=== PATIENT | male | born 1985 | race Caucasian/White ===

== ENCOUNTER 2024-03-03 08:07 | Outpatient (OUT) | payer OTHER, SELFPAY ==
--- NOTE | 2024-03-03 08:10 | MR_ITS ---
[place] [id number] Patient Name: CATHRYN BRANDON MRN: [id number] date: 1985 Sex: M Assigned Patient Location: MRI Current Patient Location: MRI Accession/Order Number: [id number] Exam Date: 03/03/2024 08:15 Report Date: 03/03/2024 12:50 At the request of: BABITA URBINA Procedure: MR head/brain wo/w con EXAM: MR head/brain wo/w con CLINICAL INDICATION: Loss Of Consciousness COMPARISON: None TECHNIQUE/PROTOCOL: Standard pre and postcontrast protocol brain MRI performed (Sagittal T1 with axial T1, T2, GRE, FLAIR, and diffusion-weighted imaging). FINDINGS: No restricted diffusion, extra-axial fluid collection, hydrocephalus, midline shift, or other mass effect. Intracranial flow voids are maintained. Multiple scattered small hyperintense T2/FLAIR periventricular and subcortical foci are nonspecific. Normal marrow signal. No soft tissue abnormalities. Mild scattered paranasal sinus mucosal thickening. Trace left mastoid effusion. MR/MR head/brain wo/w con IMPRESSION: 1. No acute intracranial process or abnormal enhancement. 2. Multiple scattered small hyperintense T2/FLAIR periventricular and subcortical foci are nonspecific. This could reflect chronic microvascular angiopathic changes, sequela of migraine headaches, or a demyelinating process. Electronically authenticated by: KATE HENDERSON Date: 03/03/2024 12:50
--- NOTE | 2024-03-03 09:45 | PC.NURSE ---
0850 Called to MRI for pt vomiting after given IV dotarem. Pt is standing and can answer all questions appropriately. Skin pink warm and dry. Pt had dry heaves in the MRI after IV administration. Pt taken to holding area ambulatory. BP 145/97 P 72 and regular, Resp 18, 96% pulse ox on RA. Pt denies SOB or any dyspnea, denies itchy feeling. No hives noted to back or axilla areas bilaterally. Pt states that he has had MRI contrast previously and he vomited after that was given also. 0905 Pt states that he is feeling fine and is ready to continue with the remainder of the scan. 0920 Pt tolerated remainder of scan well and denies any c/o problems . Encouraged pt to possibly try antiemetic prior to next IV administration of Dotarem.
== END 2024-03-03 08:08 | disposition home or self-care (01) ==
LOC: MRI 08:07
PROVIDERS: PCP Internal Medicine; Visit Provider Psychiatry & Neurology Neurology
DX: R40.20 Unspecified coma (principal); N52.9 Male erectile dysfunction, unspecified
CPT/HCPCS: 70553; A9575

== ENCOUNTER 2024-03-03 09:23 | Outpatient (OUT) | payer OTHER, SELFPAY | END 2024-03-03 09:24 | disposition home or self-care (01) | LOC: LAB 09:25 | PROVIDERS: PCP Internal Medicine; Visit Provider Nurse Practitioner Family | DX: N52.9 Male erectile dysfunction, unspecified (principal) | CPT/HCPCS: 36415; 84402; 84403 ==

== ENCOUNTER 2024-11-28 08:32 | Outpatient (OUT) | payer OTHER, SELFPAY ==
--- OUTSIDE RECORDS SUMMARY | 2024-11-28 04:27 | XMS_ITS | Continuity of Care Document ---
Author Organization [facility] Address [address] [place] [address] Phone Care Team Providers Care Head Rigger Name Role Phone Medina Correia APRN Primary Care Provider Ashley Rascon MD Attending Provider [phone] Medina Correia APRN Attending Provider Care Teams Patient Care Team Team Status: Active Member Role/Relationship Status Dates Medina Correia APRN BALE COVERER-C Primary Care Provider Active Visit Care Team Team Status: Inactive Member Role/Relationship Status Dates Medina Correia APRN BALE COVERER-C Primary Care Provider Active Start: October 122024 End: October 12, 2024Shanna Dorsey ProviderActiveStart: October 12, 2024 End: October 12, 2024 Patient Care Team Team Status: Inactive Member Role/Relationship Status Dates Medina Correia APRN BALE COVERER-C Primary Care Provider Active Start: November End: November 28, 2024Medina Correia APRN BALE COVERER-CAttending ProviderActive Start: November 28, 2024 End: November 28, 2024 Chief Complaint and Reason for Visit Chief Complaint Admit Date 3 month f/u October 12, 2024 8:31am Biometric Screening November 28, 2024 7 :54am Reason for Visit Admit Date Patent foramen ovale October 12, 2024 8:31am Syncope October 12, 2024 8:31am Vasovagal syncope October 12, 2024 8:31am Screening for deficiency anemia November 28, 2024 7:54am Screening for lipid disorders November 282024 7:54am Screening for metabolic disorder November 28, 2024 7:54am Screening for prostate cancer November 282024 7:54am Wellness examination November 28, 2024 7:54am Allergies, Adverse Reactions, Alerts Allergen Type Severity Reaction Last Updated Verified Status Gadolinium-Containing Contrast Medi Allergy Mild Vomiting November 28 7:47am Yes Active Iodinated Contrast Media Allergy Mild Vomiting November 28 7:47am Yes Active Social History Smoking Status Status Start Date End Date Date of Observa tion Ex-smoker (finding) July 31, 2024 10:57am Observation Status Observation Response Date of Response Legal Sex Male (finding) Sex Assigned At [facility] 1985 Family History Relationship Condition Age at Onset Recorded Date/T oliver mother Heart disease Unknown Myocardial infarctionUnknownfatherHeart diseaseUnknownMyocardial infarction UnknownHistory of percutaneous transluminal coronary angioplastyUnknownpaternal grandfatherMyocardial infarctionUnknownmaternal grandfatherMalignant neoplasm Unknown Problems Active Problems Problem Diagnosis/Recorded Date Onset Date Stat us Screening for prostate cancer November 28, 2024 8:15a m Unknown Active Screening for deficiency anemia November 28, 2024 8:1 4am Unknown Active Vasovagal syncope June 06, 2024 1:07pm Unknown Active Wellness examination November 28, 2024 8:14am Unknown Active Screening for metabolic disorder November 28, 2024 8: 14am Unknown Active Screening for lipid disorders November 28, 2024 8:14a m Unknown Active Syncope March 01, 2024 11:26am Unknown A ctive Patent foramen ovale March 01, 2024 11:08am Unknow n Active Inactive/Resolved Problems Problem Diagnosis/Recorded Date Onset Date Stat us Erectile dysfunction March 01, 2024 11:30am Unknow n Resolved Medications Medication Status Dose Units Route Directions Qty Days Refills S tart Date Stop Date End Date Reason(s) Instructions Adherence Sildenafil (Viagra) 50 mg tablet Discontinued 50 MG PO Daily as needed for sexual activity 10 0January 2024 1:00amJuly 2024 2:17pmErectile dysfunction Male erectile dysfunction, unspecifiedadminister 30 minutes to 4 hours before activityMetoprolol Succinate (Toprol Xl) 25 mg tablet extended release 24 hr Jyrgxisdoezu89XOFOJyhgx710Wdve 2024 12:00amOctober 2024 8:06am Sildenafil (Viagra) 50 mg clsudwHunnbj53RAMZXytce as needed for sexual activity 155July 2024 2:16pmErectile dysfunction Male erectile dysfunction, unspecifiedadminister 30 minutes to 4 hours before activityComplies with drug therapyMetoprolol Succinate (Toprol Xl) 25 mg tablet extended release 24 izUcyqqu07VQPFOhvsl079Yhbdcac 2024 8:06amComplies with drug therapyAspirin 81 mg tablet,wiaupwqvVaaqpnuzzogz46NMMJEcsisHsqstjh 2024 1:00amSeptember 2024 8:36am Vital Signs Vital Reading Result Reference Range Collection Date/Time Height 69 [in_i] October 12, 2024 8:25mmUelcah511.86 kgSeptember 2024 8:40amHeart Rate79 /dhk24-759Rawmlswel 4th, 2025 8:40amRespiratory rate18 /djp13-08Ifmsfbwdu 4th, 2025 8:40amOxygen saturation by Pulse dgvbeiff14 %95-100Sept2024 8:40amBP Ecbtqnbb529 mm[Hg]100-140September 2024 8:40amBP Aovvwamzi33 mm[Hg]60-100Sept2024 8:40amBMI (Body Mass Index)35.4 kg/v8Nxjmdtkvx2024 8:58fkBbwipp74 [in_i]November 28, 2024 7:44luPshksd023.95 kgOctober 2024 7:55amBody Jypaqmeajun52.9 [degF]97.6-99.0Octuofl [facility] 2024 7:55am Heart Rate74 /ijf79-115Iqlqhel 2024 7:55amOxygen saturation by Pulse taetzvue19 %95-100October 2024 7:55amBP Bpqyayxs691 mm[Hg]100-140October 2024 7:55amBP Xdflejlzd12 mm[Hg]60-100October 2024 7:55amBMI (Body Mass Index)35.1 kg/t3Yvyuffn 2024 7:55am Advance Directives Advance Directive Response Recorded Date/ Time Advance Directives No February 25, 2024 12:06pm Insurance Providers Guarantor Huber Vega Address [address] [place] [address]Gsfhlpw Info.Home Phone: Coverage Status Update:2024 Payer Group Member ID Coverage Type Subscriber Relationship to Subscriber Effective Date Expiration Date [facility] [id number] Encounters Encounter Location(s) Arrival/Admit Date Discharge/Departure Date Discharge/Departure Disposition Provider(s) Departed Physician/ Provider Office Visit -[facility] October 12, 2024 8:31am October 12, 2024 9:23am Discharged to home care or self care (routine discharge) Ashley Rascon MD Departed Physician/ Provider Office Visit -[facility] November 28, 2024 7:54am November 28, 2024 8:26am Discharged to home care or self care (routine discharge) Medina Correia APRN CNP Recent Diagnosis Onset Date Admit Date Patent foramen ovale Unknown October 122024 8:31am Syncope Unknown October 12, 8:31am Vasovagal syncope Unknown October 12, 2024 8:31am Screening for deficiency anemia Unknown November 28, 2024 7:54am Screening for lipid disorders Unknown Oc 2024 7:54am Screening for metabolic disorder Unknown November 28, 2024 7:54am Screening for prostate cancer Unknown Oc 2024 7:54am Wellness examination Unknown November 7:54am Assessments Diagnosis Onset Date Resolution Status Admit Date Patent foramen ovale acuteSept2024 8:31amSyncopeacuteSept2024 8:31amVasovagal syncopeacuteSept2024 8:31amScreening for deficiency anemiaacute November 28, 2024 7:54amScreening for lipid disordersacuteOct2024 7:54amScreening for metabolic disorderacuteNovember 28, 2024 7:54amScreening for prostate canceracuteNovember 28, 2024 7:54amWellness examinationacute November 28, 2024 7:54am Plan of Treatment Author Alaina Santiago [facility] CenterAuthoredSept2024 9:05amAssessment: #Vasovagal syncope #PFO with Qp/Qs ratio of 0.8:1 on cardiac MRI #Palpitations #Obesity BMI 35 Cardiac work up September 2022: Normal coronary calcium score. ECHO with EF of 60- 65%; Cardiac MRI with normal RV and LV function. No delayed LGE. PFO noted with a Qp/Qs ratio of 0.8:1. 30 day event monitor negative for arrhythmias Reviewed ECHO from [facility] 10/02/2022: LVEF 62% with normal LV size, thickness and wall motion. Enlarged RV with normal RV function. L to R shunt likely a small PFO Plan: - Tilt table testing was normal. 14 day Zio monitor showed no significant arrhythmias but had a very brief episode of nonsustained VT that was symptomatic. - Palpitations: continue Toprol 25 mg daily. - Discussed increased hydration, liberal salt intake and compression stockings if needed for vasovagal symptoms. - Continue ASA 81mg daily given hx of PFO - Follow up in 6 months, sooner if needed. Future Tests Future scheduled test information is unavailable Pending Tests Test Name Ordered Date Scheduled Date Comprehensive Metabolic Panel November 28, 2024 8:13am Future Visits Future appointment information is unavailable Future Procedures Procedure Name Ordered Date Scheduled Date Complete Blood Count Auto Diff November 28 8:13am Lipid PanelOct2024 8:13amPSA Screen (Yearly Only)November 28, 2024 8:13am Future Medications Future medication information is unavailable Patient Instructions Patient instructions are unavailable
--- OUTSIDE RECORDS SUMMARY | 2024-11-28 08:38 | XMS_ITS | Clinical Summary ---
Author Organization [facility] Address [address] [place] [address] Phone Care Team Providers Care Edge Cutting Machine Operator Name Role Phone Generic Provider, No Assigned Pcp MD Primary Car e Provider Unavailable Allergies No known active allergies Medications MedicationSigDispense QuantityRefillsLast FilledStart DateEnd DateStatus omeprazole (PriLOSEC) [address] capsule Take 1 capsule (20 mg) by mouth once daily.Active Active Problems ProblemNoted DateDiagnosed TmstYfmekow84/04/2024Seizure-like ayjnsvkc54/04/2024 Syncope and qqouvsyz05/04/2024 Social History Tobacco UseTypesPacks/DayYears UsedDateSmoking Tobacco: NeverSmokeless Tobacco: Never Tobacco Cessation:Counseling Given: Not Answered Sex and Gender InformationValueDate RecordedSex Assigned at BirthNot on file Legal ZrjBwei47/04/2024 10:07 AM ESTGender IdentityNot on fileSexual Orientation Not on file Last Filed Vital Signs Vital SignReadingTime TakenCommentsBlood Izciahrm684/6712/13/2023 2:00 PM EST Fwnfo905812/13/2023 2:00 PM SJYSzwqkqmsryb19.8 ??C (98.2 ??F)12/13/2023 10:24 AM ESTRespiratory Ecgz340302/11/2023 2:00 PM ESTOxygen Sdozwkmule48%12/13/2023 2:00 PM ESTInhaled Oxygen Concentration--Lfcxmg844 kg (240 lb)12/13/2023 10:24 AM EST Nejjqe035.3 cm (5' 9 )12/13/2023 10:24 AM ESTBody Mass Index35.44102/11/2023 10:24 AM EST Plan of Treatment Health MaintenanceDue DateLast DoneCommentsHIV Bukhztxmz36/05/1984Lipid Panel 1985MMR Vaccines (1 of 1 - Standard series)12/13/1984Hepatitis C Screening 12/13/2001Hepatitis A Vaccines (1 of 2 - Risk 2-dose series)12/13/2002Hepatitis B Vaccines (1 of 3 - 19+ 3-dose series)12/13/2002DTaP/Tdap/Td Vaccines (1 - Tdap)12/13/2005HPV Vaccines (1 - 3-dose standard series)12/13/2010Yearly Adult Pvsnlihs19///07/2022Influenza Vaccine (#1)2024OVID-19 Vaccine ( - season)2024Zoster Vaccines (1 of 2)12/13/2033HIB VaccinesAged OutNo longer eligible based on patient's age to complete this topicIPV Vaccines Aged OutNo longer eligible based on patient's age to complete this topic Meningococcal VaccineAged OutNo longer eligible based on patient's age to complete this topicPneumococcal Vaccine: Pediatrics and At-Risk Adult Patients Aged OutNo longer eligible based on patient's age to complete this topic Rotavirus VaccinesAged OutNo longer eligible based on patient's age to complete this topic Insurance * Guarantor: Chanda Vega TypeRelation to PatientDate of BirthPhone Billing AddressPersonal/LoagrxIbve81/05/1986 [address] [place] [address] [place] [id number] Care Teams Team MemberRelationshipSpecialtyStart DateEnd Date Generic Provider, No Assigned Pcp, [place] [address] PCP - GeneralGeneral Frjqokwx62/4/24
--- OUTSIDE RECORDS SUMMARY | 2024-11-28 08:38 | XMS_ITS | Clinical Summary ---
Author Organization [facility] Address Count includes the [facility] [place] [address] Care Team Providers Care Procedures Tech Name Role Phone Unavailable Primary Care Provider Unavailabl e Allergies No known active allergies Medications MedicationSigDispense QuantityRefillsLast FilledStart DateEnd DateStatus omeprazole (PRILOSEC) 20 MG capsule Take 1 (one) capsule (20 mg total) by mouth daily .Active Active Problems ProblemNoted DateDiagnosed GdagUucoaxc01/12/2024 Family History Medical HistoryRelationCommentsHeart diseaseFatherHyperlipidemiaFatherCancer Maternal GrandfatherHeart diseaseMotherCancerPaternal GrandfatherHeart disease Paternal GrandfatherDiabetesPaternal GrandmotherHeart diseasePaternal GrandmotherRelationStatusCommentsFatherMaternal GrandfatherMotherDeceased Paternal GrandfatherPaternal Grandmother Social History Tobacco UseTypesPacks/DayYears UsedDateSmoking Tobacco: FormerCigarettes0.521 01/11/2002 - 01/11/2023Smokeless Tobacco: Former Tobacco Cessation:Counseling Given: Not Answered Comments:Vaped for 5 years Alcohol UseStandard Drinks/WeekCommentsNever0 (1 standard drink = 0.6 oz pure alcohol)Overall Financial Resource Strain (CARDIA)AnswerDate RecordedHow hard is it for you to pay for the very basics like food, housing, medical care, and heating?Somewhat hard05/14/2022HQ-2AnswerDate RecordedPHQ-2 Total Score0 05/14/2022Hunger Vital SignAnswerDate RecordedWithin the past 12 months, you worried that your food would run out before you got the money to buymore.Never true05/14/2022Within the past 12 months, the food you bought just didn't last and you didn't have money to get more.Sometimes true05/14/2022RAPARE - TransportationAnswerDate RecordedIn the past 12 months, has lack of transportation kept you from medical appointments or from getting medications?No 05/14/2022In the past 12 months, has lack of transportation kept you from meetings, work, or from getting things needed for daily living?No05/14/2022Sex and Gender InformationValueDate RecordedSex Assigned at BirthNot on fileLegal OgaRnrt9205/11/2022 9:53 AM EDTGender SyspclpqGfpb29/11/2023 7:03 AM EDTSexual CdutasogiltWaxercnm82/11/2023 7:03 AM EDT Last Filed Vital Signs Vital SignReadingTime TakenCommentsBlood Tqzxgfvm763/8103/29/2023 8:39 AM EST Tiiqo754703/29/2023 8:39 AM PWSCqbzkxphjps85.7 ??C (98 ??F)05/14/2022 11:34 AM EDT Respiratory Htij045205/14/2022 12:30 PM EDTOxygen Thbdpzsotd68%03/29/2023 8:39 AM ESTInhaled Oxygen Concentration--Xezuna741.3 kg (241 lb)03/29/2023 8:39 AM EST Ocbxss597.3 cm (5' 9 )03/29/2023 8:39 AM ESTBody Mass Index35.59003/29/2023 8:39 AM EST Plan of Treatment Health MaintenanceDue DateLast DoneCommentsMMR Vaccines (1 of 1 - Standard series)12/13/1984Varicella Vaccines (1 of 2 - 13+ 2-dose series)12/13/1996HIV Skrfmaztc40/05/1999Hepatitis C Zvbqasynd32/05/2002Hepatitis B Vaccines (1 of 3 - 19+ 3-dose series)12/13/2002Tetanus/Diphtheria/Pertussis (1 - Tdap)12/13/2002HPV Vaccines (1 - 3-dose SCDM series)12/13/2010Depression Screening/Follow-Up (PHQ-2/9)Wellness Visit404/07/2022, 05/14/2022, 05/14/2022OVID-19 Vaccine (1 - 2023- season)2024Influenza Vaccine (#1) 2024Zoster Vaccines (1 of 2)4RSV Vaccines (1 - 1-dose 75+ series) 12/13/2058HIB VaccinesAged OutNo longer eligible based on patient's age to complete this topicHepatitis A VaccinesAged OutNo longer eligible based on patient's age to complete this topicIPV VaccinesAged OutNo longer eligible based on patient's age to complete this topicMeningococcal ACWY VaccineAged OutNo longer eligible based on patient's age to complete this topicMeningococcal B VaccineAged OutNo longer eligible based on patient's age to complete this topic Pneumococcal VaccineAged OutNo longer eligible based on patient's age to complete this topicRotavirus VaccinesAged OutNo longer eligible based on patient's age to complete this topic Insurance * Guarantor: Chanda Vega TypeRelation to PatientDate of BirthPhone Billing AddressPersonal/PzqplfIwds16/05/1986 [id number] (Home) [address] [place] [address]
--- OUTSIDE RECORDS SUMMARY | 2024-11-28 08:38 | XMS_ITS | Clinical Summary ---
Author Organization [facility] Address [address] [place] [address] Care Team Providers Care Welder Tack Name Role Phone Mamadou Capone DO Unavailable [phone] Chetna Nicolas NP Unavailable Unavailable Allergies Active AllergyReactionsCriticalityNoted DateCommentsIodinated Contrast MediaGI xtpwbxivwxa76/05/2025 Medications MedicationSigDispense QuantityRefillsLast FilledStart DateEnd DateStatus aspirin 81 MG EC tablet Indications:Loss of consciousness (HCC)Take 81 mg by mouth DailyActive Family History Medical HistoryRelationNameCommentsMigrainesBrotherHeart attackFatherHeart attackMotherMigrainesMotherepilepsyMother's BrotherRelationNameStatusComments BrotherFatherMotherMother's Brother Social History Tobacco UseTypesPacks/DayYears UsedDateSmoking Tobacco: FormerCigarettes Smokeless Tobacco: NeverAlcohol UseStandard Drinks/WeekCommentsNot Currently0 (1 standard drink = 0.6 oz pure alcohol)Drinks sociallySex and Gender Information ValueDate RecordedSex Assigned at BirthNot on fileLegal PshZjmm92/14/2024 9:22 AM ESTGender IdentityNot on fileSexual OrientationNot on file Last Filed Vital Signs Vital SignReadingTime TakenCommentsBlood Troeqjya753/8803/15/2024 8:38 AM EST Cwyhr980403/15/2024 8:38 AM ESTTemperature--Respiratory Rate--Oxygen Zmkrkpgphs92% 03/15/2024 8:38 AM ESTInhaled Oxygen Concentration--Aewdre609 kg (244 lb) 03/15/2024 8:38 AM ESTHeight--Body Mass Index-- Plan of Treatment [place] [address] Care Teams Team MemberRelationshipSpecialtyStart DateEnd Mamadou Capone DO [address] [place] [id number] Referring PhysicianNeurology1/09/01 Chetna Nicolas NP [address] [place] [id number] Nurse PractitionerNeurology1
--- OUTSIDE RECORDS SUMMARY | 2024-11-28 08:40 | XMS_ITS | CCD ---
Author Organization [facility] Care Team Providers Care Transportation Technician Name Role Phone Es Eleazar MOLINA Primary Care Provider [phone] LOU PALMER Attending Unavailabl e ESELEAZAR Plascencia Primary Care Unavailable ESELEAZAR Plascencia Primary Care Unavailable COLBY DEL ROSARIONLORENZO MShanika Referring Unavailable AMBROSE DEL ROSARIO Attending Unavailable ELEAZAR BURTON Primary Care Unavailable AMBROSE DEL ROSARIO MShanika Referring Unavailable AMBROSE DEL ROSARIO MShanika Attending Unavailable AMBROSE DEL ROSARIO Attending Unavailable ESELEAZARA Primary Care Unavailable RONNIE VIRENLORENZO MShanika Referring Unavailable Es Eleazar MOLINA Primary Care Provider ES, ELEAZAR CHAMPION Primary Care Unavailable DEYA NEGRETE Attending Unavailable ESELEAZAR Admitting Unavailable ESELEAZAR Primary Care Unavailable ESELEAZAR Referring Unavailable DEL ROSARIO, VIRENKMERVIN MShanika Attending Unavailable ESELEAZAR Plascencia Primary Care Unavailable ELEAZAR BURTON Attending Unavailable Generic Provider MD, No Assigned Pcp Primary Car e Provider Unavailable GENERIC PROVIDER, NO ASSIGNED PCP Primary Care Unavailable JENNIFER MACHUCA Attending Unava ilable Unavailable Primary Care Provider UnavailBabita Metcalf DO Unavailable Chetna Adamson NP Unavailable CHETNA ADAMSON Attending Unavailable BABITA CAPONE Attending Unavailable BAIBTA CAPONE Referring Unavailable Medina Correia APRN Primary Care Provider Ashley Rascon MD Attending Provider [phone] Ashley Rascon Attending Unavailable Medina Correia Primary Care Unavailable Ashley Rascon Admitting Unavailable Ashley Rascon Attending Unavailable Medina Correia Primary Care Unavailable Ashley Rascon Admitting Unavailable Medina Correia APRN Primary Care Provider Ashley Rascon MD Attending Provider [phone] Medina oCrreia APRN Primary Care Provider Ashley Rascon MD Attending Provider Medina Correia APRN Attending Provider [phone] Allergies Allergy ClassificationReported Allergen(s)Allergy TypeDate of OnsetReaction(s) Facility (7 sources)Iodinated Contrast MediaPropensity to adverse gzcbdejdd00-05-5424GX [facility] (6 sources)Gadolinium-Containing Contrast Medi; Translations: [Gadolinium- Containing Contrast Medi]Allergy to vfbuypzzv48-56[facility]17[facility] (1 source)Iodinated Contrast MediaDrug allergy (disorder)52-23-6945GwuttyzubHolzer [facility] System Rep[facility] Medications Current Medications MedicationDrug Class(es)DatesSig (Normalized)Sig (Original)24 hr metoprolol succinate 25 mg extended release oral tablet (3 sources)beta-Adrenergic BlockerStart: 07-11-2024 End: 34-69-3996ecen 1 tablet by mouth once dailyMetoprolol Succinate (Toprol Xl) 25 mg tablet extended release 24 hr Active 25 MG PO Daily 30 November 27, 2024 8:06am Complies with drug therapyomeprazole 20 mg delayed release oral capsule (6 sources)Proton Pump Inhibitortake 1 capsule by mouth once dailyomeprazole (PRILOSEC) 20 MG capsule Take 1 (one) capsule (20 mg total) by mouth daily . Activesildenafil 50 mg oral tablet (7 sources)Phosphodiesterase 5 InhibitorStart: 03-10-2024 End: 29-45-2124Jdoiyhfjfp (Viagra) 50 mg tablet Active 50 MG PO Daily as needed for sexual activity 15 August 21, 2024 2:16pm Erectile dysfunction Male erectile dysfunction, unspecified administer 30 minutes to 4hours before activity Complies with drug therapy Completed/Discontinued Medications MedicationDrug Class(es)DatesSig (Normalized)Sig (Original)aspirin 81 mg chewable tablet (15 sources)Platelet Aggregation Inhibitor, Nonsteroidal Anti-inflammatory Drug Start: 03-01-2024 End: 20-73-8926wpma 1 tablet by mouth once dailyAspirin 81 mg tablet,chewable Discontinued 81 MG PO Daily March 01, 2024 1:00am October 12, 2024 8:36am Start: 03-29-2023 End: 42-87-5549kwpv 1 tablet by mouth once dailyaspirin 81 MG EC tablet Take 1 (one) tablet (81 mg total) by mouth daily . 150 tablet 2 03/29/2023 03/28/2024 Activeiohexol (OMNIPaque) 350 mg iodine/mL solution 75 mL (1 source)Start: 12-13-2023 End: mL, intravenous, Once in imaging, Starting on Wed12/13/23 at 1212, For 1 wiyc9021 ml sodium chloride 9 mg/ml injection (1 source)Start: 12-13-2023 End: 09-81-4585274 mL, intravenous, at 500 mL/hr, Administer over 1 Hours, Once, On Wed12/13/23 at 1430, For 1 dose Problems Active Problems Problem ClassificationProblemDateDocumented DateEpisodic/ChronicCardiac and circulatory congenital anomalies (16 sources)Patent foramen ovale; Translations: [PFO (patent foramen ovale)] 04-68-4968ZymoaxoSjax; stupor; and brain damage (4 sources)Loss of consciousness; Translations: [Unspecified coma]02-15-2024 EpisodicDisorders of lipid metabolism (1 source)Hyperlipidemia; Translations: [Hyperlipidemia, unspecified]08-24-2022 ChronicEpilepsy; convulsions (7 sources)Neurological finding; Translations: [Unspecified convulsions]Onset: 865112-21-7054GwkzkywdTdynvkjzpeg deficiencies (3 sources)Vitamin D deficiency; Translations: [Vitamin D deficiency, unspecified]Onset: 506783-38-8730IgneotaUqxen male genital disorders (7 sources)Male erectile dysfunction, unspecified; Translations: [Erectile dysfunction]75-64-6262ZbhhgliOctsx screening for suspected conditions (not mental disorders or infectious disease) (8 sources)Patient encounter status; Translations: [Encounter for screening for malignant neoplasm of prostate]71-44-7301HqnpdxyuQgqsozof codes; unclassified (1 source)FH: premature coronary heart disease; Translations: [Family history of ischemic heart disease and other diseases of the circulatory system]08-24-2022 EpisodicSyncope (20 sources)Syncope; Translations: [Syncope and collapse]Onset: 08-24-2022 09-60-4700Ffevtywt Past or Other Problems Problem ClassificationProblemDateDocumented DateEpisodic/ChronicNonspecific chest pain (8 sources)Chest pain; Translations: [Chest pain, unspecified]Onset: 05-14-2022 04-52-8722DbfftpbrUlrvltit codes; unclassified (4 sources)Family history of ischemic heart disease and other diseases of the circulatory system; Translations: [Family history of ischemic heart disease and other diseases of the circulatory system]Onset: 14-67-8468Iplxqprf Results Test NameValueInterpretationReference RangeFacilityTilt table test reportOrdered By: Abdirahman Wilhelm on 37-23-4798Ujnv table [place] [address] Tilt Table Test Signed Patient: Cathryn Brandon MR#: [id number] : 1985 Date of Service:0 07/04/24 Age/Sex: 38 / M ADM Date: 5 Loc: Room: Type: [facility] Attending Dr: Ashley Rascon MD Copies to: MD Medina Shaikh APRN, PRECINCT CAPTAIN Ashley Rascon MD~ ORDERING PHYSICIAN: Dr. Rascon INDICATION FOR STUDY: Syncope PROCEDURE: Risks and benefits explained to the patient. Consent obtained. A bolus of IV fluid was given prior to testing. Orthostatic vitals were recorded. Following that, the patient was placed in a 70 degree head-up tilt position. Hemodynamics were monitored. Patient was also monitored for any postural tachycardia i.e. a symptomatic and sustained increase in upright heart rate by at least 30 beats/minute (40 beats/minute for patients under the age of 20 years) within 10 minutes of head-up tilt without orthostatic hypotension. After 25 minutes of thepassive phase, the table was brought back to a supineposition. We then proceeded to the active phase of the test in which Nitroglycerin was administeredsublingually to provoke a vasovagal response. The patient was again placed in the tilt position andmonitored for 20 minutes. The tilt table test was then terminated. Passive phase: The patient had no changes suggestive of orthostatic hypotension after tilt. No significant changes in blood pressure during the passive phase. There was no exaggerated heart rate response to suggest postural tachycardia. There was no loss of consciousness. Active phase: Normal physiologic response to Nitroglycerin was observed. There was no loss of consciousness. Please see Tilt Table Worksheet for timed logs, hemodynamic data, EKG, and nursing procedure notes. CONCLUSION: 1. Negative tilt table testing for vasovagal syncope. 2. Negative for orthostatic hypotension. 3. There was no exaggerated heart rate response to suggest postural tachycardia. Transcribed By: bonifacio 07/04/24 1525 Dictated By: Abdirahman Wilhelm MD 07/04/24 1525 Signed By: 07/04/24 1527 [facility] Work Phone: fpg ECG *CARDIOLOGY ONLY*on 22-86-8140VRI ECG *CARDIOLOGY ONLY*[place] [address] Electrocardiograph Report Signed Patient: Cathryn Brandon MR#: [id number] 5 : 1985 Acct:[id number] Age/Sex: 38 / M ADM Date: 06/06/24 Loc: [facility] Room: Type: [facility] Attending Dr: Ashley Rascon MD Ordering Provider: Ashley Rascon MD Date of Service: 06/06/24 ECG/FPG ECG *CARDIOLOGY ONLY*: R55 - Syncope and collapse Copies to: Test Reason : Blood Pressure : */* mmHG Vent. Rate : 55 BPM Atrial Rate : 55 BPM P-R Int : 180 ms QRS Dur : 88 ms QT Int : 418 ms P-R-T Axes : 18 61 18 degrees QTcB Int : 399 ms Sinus bradycardia Otherwise normal ECG Confirmed by Ashley Rascon ([id number]) on 06/06/2024 12:51:30 PM Referred By: Electronically Signed By: Ashley Rascon Transcribed By: MUS Signed By Ashley Rascon MD [address] [place] [address] Physician [facility] W Auto Differential panel (Bld)on 95-38-4875Rqfkxhuml (Bld) [#/Vol]0.08 10*3/[facility] Basophils/100 WBC (Bld)0.6 %0.0 - 2.0 %[facility] Eosinophils (Bld) [#/Vol]0.04 10*3/uLFirelands Regional Medical Center South Campus Eosinophils/100 WBC (Bld)0.3 %0.0 - 6.0 %[facility] Erythrocyte distribution width (RBC) [Ratio]12.1 %11.5 - 14.5 %[facility] CampusHematocrit (Bld) [Volume fraction]42.4 %41.0 - 52.0 % [facility] CampusHemoglobin (Bld) [Mass/Vol]14.1 g/dL13.5 - 17.5 g/dLUnKindred Hospital DaytonImmageorgetown behavioral hospital granulocytes (Bld) [#/Vol]0.04 10*3/[facility] CenterImellett memorial hospital granulocytes/100 WBC (Bld)0.3 % 0.0 - 0.9 %[facility] CampusComment on above:Immature Granulocyte Count (IG) includes promyelocytes, myelocytes and metamyelocytes but does not include bands. Percent differential counts (%) should be interpreted in the context of the absolute cell counts (cells/UL).Interpretation and review of laboratory resultsAbnormalUniKeenan Private HospitalLymphocytes (Bld) [#/Vol]1.75 10*3/uLFirelands Regional Medical Center South CampusLymphocytes/100 WBC (Bld) 14.1 %13.0 - 44.0 %[facility] HospitalH (RBC) [Entitic mass]30.7 pg26.0 - 34.0 pgUnLima City HospitalHC (RBC) [Mass/Vol]33.3 g/dL 32.0 - 36.0 g/dLGalion Community HospitalV (RBC) [Entitic vol]92 fL80 - 100 fLUniversRiley Hospital for ChildrenMonocytes (Bld) [#/Vol]0.63 10*3/uL [facility] CampusMonocytes/100 WBC (Bld)5.1 %2.0 - 10.0 % [facility] CampusNeutrophils (Bld) [#/Vol]9.9 10*3/uLHigh [facility] CampusComment on above:Percent differential counts (%) should be interpreted in the context of the absolute cell counts (cells/uL). Neutrophils/100 WBC (Bld)79.6 %40.0 - 80.0 %[facility] Nucleated RBC/100 WBC (Bld) [Ratio]0 %[facility] CampusPlatelets (Bld) [#/Vol]299 10*3/[facility] CenterRB (Bld) [#/Vol]4.6 10*6/[facility] CenterWBC (Bld) [#/Vol]12.4 10*3/uLGreen Cross HospitalUnKindred Hospital DaytonBasophils (Bld) [#/Vol]0.08 x10*3/uLNormal0.00-0.10[facility] CampusComment on above:Performed By: #### 56319-1 #### LAVONNE Padilla ([id number]) [facility] ([facility]) [address] [facility], [place] [address]Ozfailchf/100 WBC (Bld)0.6 %Normal0.0-2.0UnUniversity Hospitals Health SystemComment on above:Performed By: #### 51381-5 #### LAVONNE Padilla ([id number]) [facility] ([facility]) [address] [facility], [place] [address]Jfmmkcjbqxd (Bld) [#/Vol]0.04 x10*3/uLNormal0.00-0.70[facility] CampusComment on above:Performed By: #### 37141-6 #### LAVONNE Padilla ([id number]) [facility] ([facility]) [address] [place] [address]Zrfxgccuxae/100 WBC (Bld)0.3 %Normal0.0-6.0UnUniversity Hospitals Health SystemComment on above:Performed By: #### 47726-5 #### LAVONNE Padilla ([id number]) [facility] ([facility]) [address] [place] [address]Mgrbdygezpf distribution width (RBC) [Ratio]12.1 %Normal 11.5-14.5UnUniversity Hospitals Health SystemComment on above:Performed By: #### 22477-3 #### LAVONNE Padilla ([id number]) [facility] ([facility]) [address] [place] [address]Onjcoxkzcn (Bld) [Volume fraction]42.4 %Qtotav36.0-52.0 [facility] CampusComment on above:Performed By: #### 33722-9 #### LAVONNE Padilla ([id number]) [facility] ([facility]) [address] [place] [address]Dayvrsounx (Bld) [Mass/Vol]14.1 g/dRMstkzn77.5-17.5UnUniversity Hospitals Health SystemComment on above:Performed By: #### 16147-6 #### LAVONNE Padilla ([id number]) [facility] ([facility]) [address] [place] [address]Vsvwtuiy granulocytes (Bld) [#/Vol]0.04 x10*3/uLNormal0.00-0.70 [facility] CampusComment on above:Performed By: #### 66796-5 #### LAVONNE Padilla ([id number]) [facility] ([facility]) [address] [place] [place] [address]Ticyonzq granulocytes/100 WBC (Bld)0.3 %Normal0.0-0.9UnUniversity Hospitals Health SystemComment on above:Result Comment: Immature Granulocyte Count (IG) includes promyelocytes, myelocytes and metamyelocytes but does not include bands. Percent differential counts (%) should be interpreted in the context of the absolute cell counts (cells/UL).Performed By: #### 25786-1 #### LAVONNE Padilla ([id number]) [facility] ([facility]) [address] [place], [place] [address]Pmxqcckqvfa (Bld) [#/Vol]1.75 x10*3/uLNormal1.20-4.80[facility] CampusComment on above:Performed By: #### 50913-8 #### LAVONNE Padilla ([id number]) [facility] ([facility]) [address] [place], [place] [address]Clmafdhylib/100 WBC (Bld)14.1 %Fxdjvm59.0-44.0UnUniversity Hospitals Health SystemComment on above:Performed By: #### 78804-1 #### LAVONNE Padilla ([id number]) [facility] ([facility]) [address] [place], [place] [address]KNA (RBC) [Entitic mass]30.7 cfNrnofx49.0-34.0UnUniversity Hospitals Health SystemComment on above:Performed By: #### 22030-4 #### LAVONNE Padilla ([id number]) [facility] ([facility]) [address] [place], [place] [address]SKXR (RBC) [Mass/Vol]33.3 g/rXJplkgr20.0-36.0[facility] CampusComment on above:Performed By: #### 10863-9 #### LAVONNE Padilla ([id number]) [facility] ([facility]) [address] [place], [place] [address]BXW (RBC) [Entitic vol]92 fMIuiuwh21-761RtskiywrriUniversity Hospitals Health SystemComment on above:Performed By: #### 12097-7 #### LAVONNE Padilla ([id number]) [facility] ([facility]) [address] [place], [place] [address]Bvmvluhll (Bld) [#/Vol]0.63 x10*3/uLNormal0.10-1.00UnUniversity Hospitals Health SystemComment on above:Performed By: #### 88467-8 #### LAVONNE Padilla ([id number]) [facility] ([facility]) [address] [place] [address]Oebghmhxu/100 WBC (Bld)5.1 %Normal2.0-10.0[facility] CampusComment on above:Performed By: #### 13786-5 #### LAVONNE Padilla ([id number]) [facility] ([facility]) [address] [facility] [place], [place] [address]Hbimlwuwjqg (Bld) [#/Vol]9.90 x10*3/uLHigh1.20-7.70UnUniversity Hospitals Health SystemComment on above:Result Comment: Percent differential counts (%) should be interpreted in the context of the absolute cell counts (cells/uL).Performed By: #### 77202-0 #### LAVONNE Padilla ([id number]) [facility] ([facility]) [address] [place], [place] [address]Hhhtgdrhrfv/100 WBC (Bld)79.6 %Hotype82.0-80.0[facility] CampusComment on above:Performed By: #### 82135-0 #### LAVONNE Padilla ([id number]) [facility] ([facility]) [address] [place], [place] [address]Crwjhlzba RBC/100 WBC (Bld) [Ratio]0.0 /100 WBCsNormal0.0-0.0 [facility] CampusComment on above:Performed By: #### 02011-8 #### LAVONNE Padilla ([id number]) [facility] ([facility]) [address] [place], [place] [address]Nsqiyjrqi (Bld) [#/Vol]299 x10*3/aAKtsmxk003-691WzmliitgcnUniversity Hospitals Health SystemComment on above:Performed By: #### 25088-4 #### LAVONNE Padilla ([id number]) [facility] ([facility]) [address] [place], [place] [address]GSB (Bld) [#/Vol]4.60 x10*6/uLNormal4.50-5.90Tr[facility] CampusComment on above:Performed By: #### 03432-0 #### LAVONNE Padilla ([id number]) [facility] ([facility]) [address] [place], [place] [address]MRT (Bld) [#/Vol]12.4 x10*3/uLHigh4.4-11.3Tr[facility] West CampusComment on above:Performed By: #### 09607-8 #### LAVONNE Padilla ([id number]) [facility] ([facility]) [address] [place], [place] [address]MH ABDOMEN PELVIS W IV CONTRASTon 31-21-1876XU ABDOMEN PELVIS W IV CONTRASTSTUDY: CT Angiogram of the Chest, CT Abdomen and Pelvis with IV Contrast; 12/13/2023 12:23 PM INDICATION: Abdominal cramping and syncope. COMPARISON: XR chest 12/13/2023. ACCESSION NUMBER(S): [id number], [id number] ORDERING CLINICIAN: MEDINA MURO TECHNIQUE: CTA of the chest was performed following rapid injection of intravenous contrast. Images are reviewed and processed at a workstation according to the CT angiogram protocol with 3-D and/or MIP post processing imaging generated. CT of the abdomen and pelvis was performed with intravenous contrast. Omnipaque 350--75 mL was administered intravenously; positive oral contrast was given. Automated mA/kV exposure control was utilized and patient examination was performed in strict accordance with principles of ALARA. FINDINGS: Bolus technique for CTA of the chest is poor. Assessment for pulmonary embolus cannot be achieved. No acute opacities or effusions are visualized. There is no evidence of a pneumothorax. No filling defects are seen within the trachea or mainstem bronchi. No enlarged lymph nodes are seen within the mediastinal or hilar regions. Coronary artery calcifications are not visualized. There is no evidence of aneurysmal dilatation of the ascending aorta, aortic arch, or descending thoracic aorta. No compression deformities are visualized within the thoracic spine. There is fatty infiltration of the liver. The portal and hepatic veins are patent. There is no intrahepatic ductal dilatation. The gallbladder is mildly distended. No acute findings are seen within the spleen. No inflammatory changes are seen surrounding the pancreas. No adrenal nodule is noted. There are small bilateral renal cysts. There is no evidence of hydronephrosis. No dilated loops of small bowel or colon are visualized. There are diverticula seen throughout the colon. There is no evidence of diverticulitis. The appendix is normal in appearance. No enlarged lymph nodes are seen within the pelvic sidewalls, iliac chains, or retroperitoneum. There is no evidence of aneurysmal dilatation of the abdominal aorta. No prominent edema is seen within the psoas musculature. No compression deformities are visualized within the lumbar spine. IMPRESSION: CHEST: 1. Unable to assess for a pulmonary embolus due to poor bolus technique. ABDOMEN/PELVIS: 1. No evidence for a bowel obstruction. 2. Colonic diverticulosis, with no evidence of diverticulitis. 3. Fatty infiltration of the liver. 4. Bilateral renal cysts. Signed by Jay Del Rosario MDRegional Medical CenterCT ANGIO CHEST FOR PULMONARY EMBOLISMon [id number] ANGIO CHEST FOR PULMONARY EMBOLISMSTUDY: CT Angiogram of the Chest, CT Abdomen and Pelvis with IV Contrast; 12/13/2023 12:23 PM INDICATION: Abdominal cramping and syncope. COMPARISON: XR chest 12/13/2023. ACCESSION NUMBER(S): [id number], [id number] ORDERING CLINICIAN: MEDINA MURO TECHNIQUE: CTA of the chest was performed following rapid injection of intravenous contrast. Images are reviewed and processed at a workstation according to the CT angiogram protocol with 3-D and/or MIP post processing imaging generated. CT of the abdomen and pelvis was performed with intravenous contrast. Omnipaque 350--75 mL was administered intravenously; positive oral contrast was given. Automated mA/kV exposure control was utilized and patient examination was performed in strict accordance with principles of ALARA. FINDINGS: Bolus technique for CTA of the chest is poor. Assessment for pulmonary embolus cannot be achieved. No acute opacities or effusions are visualized. There is no evidence of a pneumothorax. No filling defects are seen within the trachea or mainstem bronchi. No enlarged lymph nodes are seen within the mediastinal or hilar regions. Coronary artery calcifications are not visualized. There is no evidence of aneurysmal dilatation of the ascending aorta, aortic arch, or descending thoracic aorta. No compression deformities are visualized within the thoracic spine. There is fatty infiltration of the liver. The portal and hepatic veins are patent. There is no intrahepatic ductal dilatation. The gallbladder is mildly distended. No acute findings are seen within the spleen. No inflammatory changes are seen surrounding the pancreas. No adrenal nodule is noted. There are small bilateral renal cysts. There is no evidence of hydronephrosis. No dilated loops of small bowel or colon are visualized. There are diverticula seen throughout the colon. There is no evidence of diverticulitis. The appendix is normal in appearance. No enlarged lymph nodes are seen within the pelvic sidewalls, iliac chains, or retroperitoneum. There is no evidence of aneurysmal dilatation of the abdominal aorta. No prominent edema is seen within the psoas musculature. No compression deformities are visualized within the lumbar spine. IMPRESSION: CHEST: 1. Unable to assess for a pulmonary embolus due to poor bolus technique. ABDOMEN/PELVIS: 1. No evidence for a bowel obstruction. 2. Colonic diverticulosis, with no evidence of diverticulitis. 3. Fatty infiltration of the liver. 4. Bilateral renal cysts. Signed by Jay Del Rosario MDRegional Medical CenterCT HEAD WO IV CONTRASTon 09-10-7386TI HEAD WO IV CONTRASTInterpreted By: Eleazar Quinn, STUDY: CT HEAD WO IV CONTRAST; 12/13/2023 3:11 pm INDICATION: Signs/Symptoms:syncope, possible seizure. COMPARISON: None. ACCESSION NUMBER(S): [id number] ORDERING CLINICIAN: CATHRYN MERAZ TECHNIQUE: Contiguous axial CT images were obtained through the head at 5 mm slice thickness without contrast administration. FINDINGS: INTRACRANIAL: The ventricles, sulci and basal cisterns are within normal limits for size and configuration. The ramires-white differentiation is intact. There is no mass effect or midline shift. There is no extraaxial fluid collection. There is no intracranial hemorrhage. The calvarium is unremarkable. EXTRACRANIAL: Visualized paranasal sinuses and mastoids are clear. IMPRESSION: No evidence of acute cortical infarct or intracranial hemorrhage. MACRO: None Signed by: Eleazar Quinn 12/13/2023 3:23 PM Dictation workstation: [id number] Medical CenterCT Head WO contraston [id number] evidence of acute cortical infarct or intracranial hemorrhage. MACRO: None Signed by: Eleazar Quinn 12/13/2023 3:23 PM Dictation workstation: [id number] MMODALInterpreted By: Eleazar Quinn, STUDY: CT HEAD WO IV CONTRAST; 12/13/2023 3:11 pm INDICATION: Signs/Symptoms:syncope, possible seizure. COMPARISON: None. ACCESSION NUMBER(S): [id number] ORDERING CLINICIAN: CATHRYN MERAZ TECHNIQUE: Contiguous axial CT images were obtained through the head at 5 mm slice thickness without contrast administration. FINDINGS: INTRACRANIAL: The ventricles, sulci and basal cisterns are within normal limits for size and configuration. The ramires-white differentiation is intact. There is no mass effect or midline shift. There is no extraaxial fluid collection. There is no intracranial hemorrhage. The calvarium is unremarkable. EXTRACRANIAL: Visualized paranasal sinuses and mastoids are clear. MMEleazar Peacock MD - 12/13/2023 Interpreted By: Eleazar Quinn, STUDY: CT HEAD WO IV CONTRAST; 12/13/2023 3:11 pm INDICATION: Signs/Symptoms:syncope, possible seizure. COMPARISON: None. ACCESSION NUMBER(S): [id number] ORDERING CLINICIAN: CATHRYN MERAZ TECHNIQUE: Contiguous axial CT images were obtained through the head at 5 mm slice thickness without contrast administration. FINDINGS: INTRACRANIAL: The ventricles, sulci and basal cisterns are within normal limits for size and configuration. The ramires-white differentiation is intact. There is no mass effect or midline shift. There is no extraaxial fluid collection. There is no intracranial hemorrhage. The calvarium is unremarkable. EXTRACRANIAL: Visualized paranasal sinuses and mastoids are clear. IMPRESSION: No evidence of acute cortical infarct or intracranial hemorrhage. MACRO: None Signed by: Eleazar Quinn 12/13/2023 3:23 PM Dictation workstation: [id number] [facility] Work Phone: Radiology Study observation (narrative)[facility] Work Phone: CT Head WO contrastOrdered By: Eleazar Quinn on 47-30-0311YilomgnuetKindred Hospital Dayton Work Phone: Comprehensive metabolic 2000 panelon 65-65-5438Iwsswil BCP dye [Mass/Vol]4.1 g/dL3.4 - 5.0 g/dLUnKindred Hospital DaytonALP [Catalytic activity/Vol]66 U/L33 - 120 U/[facility] HospitalALT With P-5'-P [Catalytic activity/Vol]34 U/L10 - 52 U/[facility] HospitalComment on above:Patients treated with Sulfasalazine may generate falsely decreased results for ALT.Anion gap [Moles/Vol]16 mmol/L10 - 20 mmol/L [facility] CampusAST With P-5'-P [Catalytic activity/Vol]29 U/L9 - 39 U/Protestant HospitalBilirubin [Mass/Vol]0.8 mg/dL0.0 - 1.2 mg/dLUnKindred Hospital DaytonCalcium [Mass/Vol]9 mg/dL8.6 - 10.3 mg/dL [facility] CampusChloride [Moles/Vol]102 mmol/L98 - 107 mmol/L [facility] CampusCO2 [Moles/Vol]25 mmol/L21 - 32 mmol/L [facility] CampusCreatinine [Mass/Vol]0.9 mg/dL0.50 - 1.30 mg/dL [facility] CampuseGFR- PINFUniKeenan Private Hospital Comment on above:Calculations of estimated GFR are performed using the 2020 CKD- EPI Study Refit equation without therace variable for the IDMS-Traceable creatinine methods. https://jasn.asnjournals.org/content//ASN.0880271200 Glucose [Mass/Vol]96 mg/dL74 - 99 mg/dLUnKindred Hospital Dayton Interpretation and review of laboratory resultsNormalUniKeenan Private HospitalPotassium [Moles/Vol]4 mmol/L3.5 - 5.3 mmol/[facility]ant HospitalProtein [Mass/Vol]6.6 g/dL6.4 - 8.2 g/dLUnKindred Hospital DaytonSodium [Moles/Vol]139 mmol/L136 - 145 mmol/Protestant HospitalUrea nitrogen [Mass/Vol]12 mg/dL6 - 23 mg/dLUniversity Hospitals of ClevelandUnKindred Hospital DaytonAlbumin BCP dye [Mass/Vol]4.1 g/dL Normal3.4-5.0UnUniversity Hospitals Health SystemComment on above: Performed By: #### 11661-2 #### LAVONNE Padilla ([id number]) [facility] ([facility]) [address] [place], [place] [address]ISC [Catalytic activity/Vol]66 U/ZWhzqqp89-798GzrgtpzaqfUniversity Hospitals Health SystemComment on above:Performed By: #### 84742-8 #### LAVONNE Padilla ([id number]) [facility] ([facility]) [address] [place], [place] [address]BCM With P-5'-P [Catalytic activity/Vol]34 U/UJgeowu18-53 [facility] CampusComment on above:Result Comment: Patients treated with Sulfasalazine may generate falsely decreased results for ALT.Performed By: #### 01303-3 #### LAVONNE Padilla ([id number]) [facility] ([facility]) [address] [place], [place] [address]Rvpub gap [Moles/Vol]16 mmol/YUurykt81-78BettpluonpUniversity Hospitals Health SystemComment on above:Performed By: #### 46283-7 #### LAVONNE Padilla ([id number]) [facility] ([facility]) [address] [place], [place] [address]NLN With P-5'-P [Catalytic activity/Vol]29 U/LNormal9-39 [facility] CampusComment on above:Performed By: #### 41082-0 #### LAVONNE Padilla ([id number]) [facility] ([facility]) [address] [place], [place] [address]Qwtxnsxjs [Mass/Vol]0.8 mg/dLNormal0.0-1.2[facility] West CampusComment on above:Performed By: #### 49054-4 #### LAVONNE Padilla ([id number]) [facility] ([facility]) [address] [place], [place] [address]Eymgtdb [Mass/Vol]9.0 mg/dLNormal8.6-10.3UnUniversity Hospitals Health SystemComment on above:Performed By: #### 86986-7 #### LAVONNE Padilla ([id number]) [facility] ([facility]) [address] [place] [address]Iggwbjjb [Moles/Vol]102 mmol/VHhxtuf67-229BmeaiwbapcUniversity Hospitals Health SystemComment on above:Performed By: #### 12318-2 #### LAVONNE Padilla ([id number]) [facility] ([facility]) [address] [place] [address]OB1 [Moles/Vol]25 mmol/WHipucp07-60IilgsfuskiUniversity Hospitals Health SystemComment on above:Performed By: #### 86731-2 #### LAVONNE Padilla ([id number]) [facility] ([facility]) [address] [place] [address]Nrxmswnwrl [Mass/Vol]0.90 mg/dLNormal0.50-1.30UnUniversity Hospitals Health SystemComment on above:Performed By: #### 59585-2 #### LAVONNE Padilla (55027) [facility] ([facility]) [address] [place] [address]GMO/1.73 sq M.predicted MDRD (S/P/Bld) [Vol rate/Area] mL/min/{1.73_m2}Normal>60UnUniversity Hospitals Health SystemComment on above:Result Comment: Calculations of estimated GFR are performed using the 2020 CKD-EPI Study Refit equation without the race variable for the IDMS-Traceable creatinine methods. https://jasn.asnjournals.org/content//ASN.6039167533Muzzhqwtg By: #### 84639-6 #### LAVONNE Padilla ([id number]) [facility] ([facility]) [address] [place] [address]Ayqheqb [Mass/Vol]96 mg/bDQmuets13-27OfkylgyewjUniversity Hospitals Health SystemComment on above:Performed By: #### 75663-6 #### LAVONNE Padilla ([id number]) [facility] ([facility]) [address] [place] [address]Amwulbzft [Moles/Vol]4.0 mmol/LNormal3.5-5.3[facility] West CampusComment on above:Performed By: #### 69108-0 #### LAVONNE Padilla ([id number]) [facility] ([facility]) [address] [place] [address]Ihywcfd [Mass/Vol]6.6 g/dLNormal6.4-8.2[facility] West CampusComment on above:Performed By: #### 63647-3 #### LAVONNE Padilla ([id number]) [facility] ([facility]) [address] [place] [address]Wnszbb [Moles/Vol]139 mmol/RZqpifg289-341KgrlshwwmiUniversity Hospitals Health SystemComment on above:Performed By: #### 03218-6 #### LAVONNE Padilla (64036) [facility] ([facility]) [address] [place] [address]Kjrj nitrogen [Mass/Vol]12 mg/dLNormal6-23UnUniversity Hospitals Health SystemComment on above:Performed By: #### 00410-8 #### LAVONNE Padilla ([id number]) [facility] ([facility]) [address] [place] [address]A-Atdkc, VTE Exclusionon 57-70-9238Opvmyv D-dimer FEU (PPP) [Mass/Vol]280NINFUnKindred Hospital DaytonEC 12-LEADon 90-64-4211ZFJ 12-LEADVentricular Rate 68 Atrial Rate 68 P-R Interval 174 QRS Duration 110 Q-T Interval 390 QTC Calculation(Bazett) 414 P Siloam 30 R Siloam 17 T Siloam 52 QRS Count 12 Q Onset 225 P Onset 138 P Offset 203 T Offset 420 QTC Fredericia 406 Diagnosis Normal sinus rhythm Normal ECG No previous ECGs available See ED provider note for full interpretation and clinical correlation Confirmed by Hanna Villar ([id number]) on 01/20/2024 6:09:38 PMNormalJefferson Cherry [facility] Hospital ([facility])Fibrin D-dimer FEUon 77-98-9499Uzvnzp D-dimer FEU (PPP) [Mass/Vol]280 ng/mL FEUNormal<=500[facility] Comment on above:Order Comment: The VTE Exclusion D-Dimer assay is reported in ng/mL Fibrinogen Equivalent Units (FEU). Per bridge operator slip's instructions for use, a value of less than 500 ng/mL (FEU) may help to exclude DVT or PE in outpatients when the assay is used with a clinical pretest probability assessment.(AEMR must utilize and document eCalc 'Wells Score Deep Vein Thrombosis Risk' for DVT exclusion only. Emergency Department should utilize Guidelines for Emergency Department Use of the VTE Exclusion D-Dimer and Clinical Pretest probability assessment model for DVT or PE exclusion.)Performed By: #### 74926-3 #### LAVONNE Padilla ([id number]) [facility] ([facility]) [address] [place] [address]Edbcgx D-dimer FEU (PPP) [Mass/Vol]on 85-73-0023Dlkpluxqmvxefp and review of laboratory resultsNormBarberton Citizens HospitalThe VTE Exclusion D-Dimer assay is reported in ng/mL Fibrinogen Equivalent Units (FEU). Per bridge operator slip's instructions for use, a value of less than 500 ng/mL (FEU) may help to exclude DVT or PE in outpatients when the assay is used with a clinical pretest probability assessment.(AEMR must utilize and document eCalc 'Wells Score Deep Vein Thrombosis Risk' for DVT exclusion only. Emergency Department should utilize Guidelines for Emergency Department Use of the VTE Exclusion D-Dimer and Clinical Pretest probability assessment model for DVT or PE exclusion.)[facility] Gas panel (BldV)on 47-98-5157Pogkn gap 4 (BldV) [Moles/Vol]9 mmol/LLow10.0 - 25.0 mmol/Protestant HospitalBase excess Calc (BldV) [Moles/Vol] 1.6 mmol/L-2.0 - 3.0 mmol/Protestant HospitalCalcium.ionized (BldV) [Moles/Vol]1.19 mmol/L1.10 - 1.33 mmol/[facility] Chloride (BldV) [Moles/Vol]101 mmol/L98 - 107 mmol/[facility]ant HospitalCO2 (BldV) [Partial pressure]39 mm[Hg]LowFirelands Regional Medical Center South CampusGlucose [Mass/Vol]96 mg/dL74 - 99 mg/dLFirelands Regional Medical Center South CampusHCO3 (Bld) [Moles/Vol]25.9 mmol/L22.0 - 26.0 mmol/[facility]testant HospitalHematocrit Est (Bld) [Volume fraction]64 %High41.0 - 52.0 % [facility] CampusHemoglobin (Bld) [Mass/Vol]21.4 g/zQVxsi89.5 - 17.5 g/dLFirelands Regional Medical Center South CampusInhaled oxygen whemxeqxvgsxy84 % [facility] CampusInterpretation and review of laboratory results AbnormalUnKindred Hospital DaytonLactate (BldV) [Moles/Vol]1.4 mmol/L0.4 - 2.0 mmol/[facility]ant HospitalOxygen (BldV) [Partial pressure]47 mm[Hg]HighUnKindred Hospital DaytonOxygen saturation in Venous blood79 % High45 - 75 %[facility] CampusOxyhemoglobin (BldV) [Mass fraction]77.4 %High45.0 - 75.0 %[facility] CampuspH (BldV)7.43 [pH]7.33 - 7.43 pHFirelands Regional Medical Center South CampusPotassium (BldV) [Moles/Vol] 3.7 mmol/L3.5 - 5.3 mmol/[facility] HospitalSodium (BldV) [Moles/Vol]132 mmol/SUue052 - 145 mmol/[facility] Medical CenterAnion gap 4 (BldV) [Moles/Vol]9.0 mmol/LLow 10.0-25.0[facility] CampusComment on above:Performed By: #### 41673-8 #### LAVONNE Padilla ([id number]) [facility] ([facility]) [address] [place], [place] [address]Base excess Calc (BldV) [Moles/Vol]1.6 mmol/LNormal-2.0-3.0 [facility] CampusComment on above:Performed By: #### 47344-6 #### LAVONNE Padilla ([id number]) [facility] ([facility]) [address] [place] [address]Xxizmxm.ionized (BldV) [Moles/Vol]1.19 mmol/LNormal1.10-1.33 [facility] CampusComment on above:Performed By: #### 58311-6 #### LAVONNE Padilla ([id number]) [facility] ([facility]) [address] [place] [address]Xonygqjp (BldV) [Moles/Vol]101 mmol/HRlytbi95-102JveshdnlrwUniversity Hospitals Health SystemComment on above:Performed By: #### 08273-2 #### LAVONNE Padilla ([id number]) [facility] ([facility]) [address] [place] [address]XP5 (BldV) [Partial pressure]39 mm TnHke20-45ZovtnhkcppUniversity Hospitals Health SystemComment on above:Performed By: #### 52846-1 #### LAVONNE Padilla ([id number]) [facility] ([facility]) [address] [place] [address]Mfgqxok [Mass/Vol]96 mg/qFCrkkpr12-43OmjiljafujUniversity Hospitals Health SystemComment on above:Performed By: #### 83886-8 #### LVAONNE Padilla (78804) [facility] ([facility]) [address] [place] [address]ADX1 (Bld) [Moles/Vol]25.9 mmol/NVbfuge49.0-26.0UnUniversity Hospitals Health SystemComment on above:Performed By: #### 19050-2 #### LAVONNE Padilla (02657) [facility] ([facility]) [address] [place] [address]Yzywcjyrgy Est (Bld) [Volume fraction]64.0 %High41.0-52.0 [facility] CampusComment on above:Performed By: #### 02841-0 #### LAVONNE Padilla (52016) [facility] ([facility]) [address] [place] [address]Rqjwbwpcjl (Bld) [Mass/Vol]21.4 g/hLYuse89.5-17.5[facility] West CampusComment on above:Performed By: #### 25129-8 #### LAVONNE Padilla (20834) [facility] ([facility]) [address] [place] [address]Ujgvwhy oxygen beeqfbblonbon09 %NormalUnUniversity Hospitals Health SystemComment on above:Performed By: #### 52824-6 #### LAVONNE Padilla (52921) [facility] ([facility]) [address] [place] [address]Axnxgxc (BldV) [Moles/Vol]1.4 mmol/LNormal0.4-2.0UnUniversity Hospitals Health SystemComment on above:Performed By: #### 85688-3 #### LAVONNE Padilla (45204) [facility] ([facility]) [address] [place], [place] [address]Wqzdfx (BldV) [Partial pressure]47 mm XhAnyy28-27TzkjkxqhlyUniversity Hospitals Health SystemComment on above:Performed By: #### 33113-2 #### LAVONNE Padilla (78528) [facility] ([facility]) [address] [place], [place] [address]Ejewpk saturation in Venous blood79 %Ldqd50-06MclddgkjvuUniversity Hospitals Health SystemComment on above:Performed By: #### 86931-8 #### LAVONNE Padilla (35038) [facility] ([facility]) [address] [place] [address]Xehzshqgjgnpn (BldV) [Mass fraction]77.4 %High45.0-75.0 [facility] CampusComment on above:Performed By: #### 82534-6 #### LAVONNE Padilla (88517) [facility] ([facility]) [address] [place] [address]eI (BldV)7.43 [pH]Normal7.33-7.43[facility] West CampusComment on above:Performed By: #### 31000-7 #### LAVONNE Padilla (37614) [facility] ([facility]) [address] [place] [address]Dfumhlwwl (BldV) [Moles/Vol]3.7 mmol/LNormal3.5-5.3UnUniversity Hospitals Health SystemComment on above:Performed By: #### 47480-1 #### LAVONNE Padilla (84576) [facility] ([facility]) [address] [place], [place] [address]Ndyzlx (BldV) [Moles/Vol]132 mmol/FVsp677-048WcsdghnmdwUniversity Hospitals Health SystemComment on above:Performed By: #### 74739-5 #### LAVONNE Padilla (41139) [facility] ([facility]) [address] [place], [place] [address]Ziprzsa Test strip manual (Bld) [Mass/Vol]on 36-15-1241Wdzjknl [Mass/Vol]102 mg/tUFswb50 - 99 mg/dLFirelands Regional Medical Center South Campus Interpretation and review of laboratory resultsAbnoSt. John of God HospitalGlucose [Mass/Vol]102 mg/tBOnfh68-37 [facility] CampusComment on above:Performed By: #### 2341-6 #### LAVONNE Padilla (43157) [facility] ([facility]) [address] [place], [place] [address]Mwmqspljv 47-64-9161Fhtuixp [Moles/Vol]0.8 mmol/L0.4 - 2.0 mmol/Protestant HospitalLactate [Moles/Vol]0.8 mmol/LNormal 0.4-2.0UnUniversity Hospitals Health SystemComment on above:Order Comment: Venipuncture immediately after or during the administration of Metamizole may lead to falsely low results. Testing should be performed immediately prior to Metamizole dosing.Performed By: #### 2524-7 #### LAVONNE Padilla (32519) [facility] ([facility]) [address] [place], [place] [address]Cvvlzlu [Moles/Vol]on 81-43-7351Xphsuurirpwtch and review of laboratory resultsNoSelect Medical Specialty Hospital - Southeast OhioVenipuncture immediately after or during the administration of Metamizole may lead to falsely low results. Testing should be performed immediately prior to Metamizole dosing.[facility] Magnesiumon 79-61-6340Xasapjppc [Mass/Vol]1.74 mg/dL1.60 - 2.40 mg/dLUnKindred Hospital DaytonMagnesium [Mass/Vol]1.74 mg/dLNormal1.60-2.40UnUniversity Hospitals Health SystemComment on above:Performed By: #### 76491-3 #### LAVONNE Padilla (23747) [facility] ([facility]) [address] [place], [place] [address]Jjfzvrwsh [Mass/Vol]on 50-84-9997Kzfapjtpzoqmim and review of laboratory resultsNoSelect Medical Specialty Hospital - Southeast OhioNatriuretic peptide B [Mass/Vol]on 67-24-2209Mtukoxkziuhflp and review of laboratory resultsNormal [facility] CampusNatmiuretic peptide B (Bld) [Mass/Vol]20 pg/mL0 - 99 pg/mLUnKindred Hospital Dayton<100 pg/mL - Heart failure unlikely 100-299 pg/mL - Intermediate probability of acute heart failure exacerbation. Correlate with clinical context and patient history. >=300 pg/mL - Heart Failure likely. Correlate with clinical context and patient history. BNP testing is performed using different testing methodology at [facility] than at other [facility]. Direct result comparisons should only be made within the same method. [facility] HospitalNatriuretic peptide B (Bld) [Mass/Vol]20 pg/mLNormal0-99UnUniversity Hospitals Health SystemComment on above:Order Comment: <100 pg/mL - Heart failure unlikely 100-299 pg/mL - Intermediate probability of acute heart failure exacerbation. Correlate with clinical context and patient history. >=300 pg/mL - Heart Failure likely. Correlate with clinical context and patient history. BNP testing is performed using different testing methodology at [facility] than at other [facility] hospitals. Direct result comparisons should only be made within the same method.Performed By: #### 71883-9 #### LAVONNE TITUSSONNY Padilla ([id number]) [facility] ([facility]) [address] [place], [place] [address]Cj Panel Informationon 14-01-2619MPAIE: 1. Unable to assess for a pulmonary embolus due to poor bolus technique. ABDOMEN/PELVIS: 1. No evidence for a bowel obstruction. 2. Colonic diverticulosis, with no evidence of diverticulitis. 3. Fatty infiltration of the liver. 4. Bilateral renal cysts. Signed by Jay Del Rosario MD TELERADIOLOGYSTUDY: CT Angiogram of the Chest, CT Abdomen and Pelvis with IV Contrast; 12/13/2023 12:23 PM INDICATION: Abdominal cramping and syncope. COMPARISON: XR chest 12/13/2023. ACCESSION NUMBER(S): [id number], [id number] ORDERING CLINICIAN: MEDINA MURO TECHNIQUE: CTA of the chest was performed following rapid injection of intravenous contrast. Images are reviewed and processed at a workstation according to the CT angiogram protocol with 3-D and/or MIP post processing imaging generated. CT of the abdomen and pelvis was performed with intravenous contrast. Omnipaque 350--75 mL was administered intravenously; positive oral contrast was given. Automated mA/kV exposure control was utilized and patient examination was performed in strict accordance with principles of ALARA. FINDINGS: Bolus technique for CTA of the chest is poor. Assessment for pulmonary embolus cannot be achieved. No acute opacities or effusions are visualized. There is no evidence of a pneumothorax. No filling defects are seen within the trachea or mainstem bronchi. No enlarged lymph nodes are seen within the mediastinal or hilar regions. Coronary artery calcifications are not visualized. There is no evidence of aneurysmal dilatation of the ascending aorta, aortic arch, or descending thoracic aorta. No compression deformities are visualized within the thoracic spine. There is fatty infiltration of the liver. The portal and hepatic veins are patent. There is no intrahepatic ductal dilatation. The gallbladder is mildly distended. No acute findings are seen within the spleen. No inflammatory changes are seen surrounding the pancreas. No adrenal nodule is noted. There are small bilateral renal cysts. There is no evidence of hydronephrosis. No dilated loops of small bowel or colon are visualized. There are diverticula seen throughout the colon. There is no evidence of diverticulitis. The appendix is normal in appearance. No enlarged lymph nodes are seen within the pelvic sidewalls, iliac chains, or retroperitoneum. There is no evidence of aneurysmal dilatation of the abdominal aorta. No prominent edema is seen within the psoas musculature. No compression deformities are visualized within the lumbar spine. TELERADIOLOGY Jay Del Rosario MD - 12/13/2023 STUDY: CT Angiogram of the Chest, CT Abdomen and Pelvis with IV Contrast; 12/13/2023 12:23 PM INDICATION: Abdominal cramping and syncope. COMPARISON: XR chest 12/13/2023. ACCESSION NUMBER(S): [id number], [id number] ORDERING CLINICIAN: MEDINA MURO TECHNIQUE: CTA of the chest was performed following rapid injection of intravenous contrast. Images are reviewed and processed at a workstation according to the CT angiogram protocol with 3-D and/or MIP post processing imaging generated. CT of the abdomen and pelvis was performed with intravenous contrast. Omnipaque 350--75 mL was administered intravenously; positive oral contrast was given. Automated mA/kV exposure control was utilized and patient examination was performed in strict accordance with principles of ALARA. FINDINGS: Bolus technique for CTA of the chest is poor. Assessment for pulmonary embolus cannot be achieved. No acute opacities or effusions are visualized. There is no evidence of a pneumothorax. No filling defects are seen within the trachea or mainstem bronchi. No enlarged lymph nodes are seen within the mediastinal or hilar regions. Coronary artery calcifications are not visualized. There is no evidence of aneurysmal dilatation of the ascending aorta, aortic arch, or descending thoracic aorta. No compression deformities are visualized within the thoracic spine. There is fatty infiltration of the liver. The portal and hepatic veins are patent. There is no intrahepatic ductal dilatation. The gallbladder is mildly distended. No acute findings are seen within the spleen. No inflammatory changes are seen surrounding the pancreas. No adrenal nodule is noted. There are small bilateral renal cysts. There is no evidence of hydronephrosis. No dilated loops of small bowel or colon are visualized. There are diverticula seen throughout the colon. There is no evidence of diverticulitis. The appendix is normal in appearance. No enlarged lymph nodes are seen within the pelvic sidewalls, iliac chains, or retroperitoneum. There is no evidence of aneurysmal dilatation of the abdominal aorta. No prominent edema is seen within the psoas musculature. No compression deformities are visualized within the lumbar spine. IMPRESSION: CHEST: 1. Unable to assess for a pulmonary embolus due to poor bolus technique. ABDOMEN/PELVIS: 1. No evidence for a bowel obstruction. 2. Colonic diverticulosis, with no evidence of diverticulitis. 3. Fatty infiltration of the liver. 4. Bilateral renal cysts. Signed by Jay Del Rosario MD [facility] Work Phone: UnKindred Hospital DaytonRadiology Study observation (narrative)[facility] Work Phone: No Panel InformationOrdered By: Jay Del Rosario on [id number] Hospital Dayton Work Phone: Phosphateon [id number] [Mass/Vol]2.0 mg/dLLow 2.5-4.9UnUniversity Hospitals Health SystemComment on above:Result Comment: The performance characteristics of phosphorus testing in heparinized plasma have been validated by the individual laboratory site where testing is performed. Testing on heparinizedplasma is not approved by the FDA; however, such approval is not necessary.Performed By: #### 2777-1 #### LAVONNE Padilla ([id number]) [facility] ([facility]) [address] [place], [place] [address]Drlldkedn [Mass/Vol]on [id number] and review of laboratory resultsAbnormalUniKeenan Private HospitalPhosphoruson 90-90-4210Kqlodzcak [Mass/Vol]2 mg/dLLow2.5 - 4.9 mg/dLUnKindred Hospital DaytonComment on above:The performance characteristics of phosphorus testing in heparinized plasma have been validated by the individual laboratory site where testing is performed. Testing on heparinized plasma is not approved by the FDA; however, such approval is not necessary.Tropinin I.cardiac panel High sensitivity methodon [id number] and review of laboratory results [facility] CantonLess than 99th percentile of normal range cutoff- Female and children under 18 years old <14 ng/L; Male <21 ng/L: Negative Repeat testing should be performed if clinically indicated. Female and children under 18 years old 14-50 ng/L; Male 21-50 ng/L: Consistent with possible cardiac damage and possible increased clinical risk. Serial measurements may help to assess extent of myocardial damage. >50 ng/L: Consistent with cardiac damage, increased clinical risk and myocardial infarction. Serial measurements may help assess extent of myocardial damage. NOTE: Children less than 1 year old may have higher baseline troponin levels and results should be interpreted in conjunction with the overall clinical context. NOTE: Troponin I testing is performed using a different testing methodology at [facility] than at other [facility]. Direct result comparisons should only be made within the same method.[facility]len[facility] HospitalInterpretation and review of laboratory resultsNoal [facility] CampusLess than 99th percentile of normal range cutoff- Female and children under 18 years old <14 ng/L; Male <21 ng/L: Negative Repeat testing should be performed if clinically indicated. Female and children under 18 years old 14-50 ng/L; Male 21-50 ng/L: Consistent with possible cardiac damage and possible increased clinical risk. Serial measurements may help to assess extent of myocardial damage. >50 ng/L: Consistent with cardiac damage, increased clinical risk and myocardial infarction. Serial measurements may help assess extent of myocardial damage. NOTE: Children less than 1 year old may have higher baseline troponin levels and results should be interpreted in conjunction with the overall clinical context. NOTE: Troponin I testing is performed using a different testing methodology at [facility] than at other [facility]. Direct result comparisons should only be made within the same method.[facility] O'Bleness HospitalTropon I, High Sensitivity, Initialon [id number] I.cardiac panel High sensitivity method5 ng/L0 - 20 ng/LUnKindred Hospital DaytonTrroper st. francis ber[facility] hospitaln I.cardiac panelon 69-12-1757Toijzdcx I.cardiac panel High sensitivity method5 ng/LNormal0-20[facility] Comment on above:Order Comment: Less than 99th percentile of normal range cutoff-Female and children under 18 years old <14 ng/L; Male <21 ng/L: NegativeRepeat testing should be performed if clinically indicated.Female and children under 18 years old 14-50 ng/L; Male 21-50 ng/L:Consistent with possible cardiac damage and possible increased clinicalrisk. Serial measurements may help to assess extent of myocardial damage.>50 ng/L: Consistent with cardiac damage, increased clinical risk andmyocardial infarction. Serial measurements may help assess extent ofmyocardial damage.NOTE: Children less than 1 year old may have higher baseline troponinlevels and results should be interpreted in conjunction withthe overallclinical context.NOTE: Troponin I testing is performed using a differenttesting methodology at [facility] than at [facility]. Direct result comparisons should onlybe made within the same method.Performed By: #### 41070-8 #### LAVONNE Padilla ([id number]) [facility] ([facility]) [address] [place], [place] [address]Rbqzndwp I.cardiac panel High sensitivity method5 ng/LNormal 0-20[facility] CampusComment on above:Order Comment: Less than 99th percentile of normal range cutoff- Female and children under 18 years old <14 ng/L; Male <21 ng/L: Negative Repeat testing should be performed if clinically indicated. Female and children under 18 years old 14-50 ng/L; Male 21-50 ng/L: Consistent with possible cardiac damage and possible increased clinical risk. Serial measurements may help to assess extent of myocardial damage. >50 ng/L: Consistent with cardiac damage, increased clinical risk and myocardial infarction. Serial measurements may help assess extent of myocardial damage. NOTE: Children less than 1 year old may have higher baseline troponin levels and results should be interpreted in conjunction with the overall clinical context. NOTE: Troponin I testing is performed using a different testing methodology at [facility] than at other [facility]. Direct result comparisons should only be made within the same method.Performed By: #### 99698-5 #### LAVONNE Padilla ([id number]) [facility] ([facility]) [address] [place] [place] [address]Ofevvcgp, High Sensitivity, 1 Houron 52-98-1878Nhblurhw I.cardiac panel High sensitivity method5 ng/L0 - 20 ng/LUnKindred Hospital DaytonUrinalysis complete W Reflex Culture panel (U)on 12-81-1982Ngxdpgorml (U)ClearClearUnKindred Hospital DaytonBilirubin (U) [Mass/Vol]Negative NEGATIVEUnKindred Hospital DaytonColor (U)YellowLight-Yellow, Yellow, Dark-YellowUnKindred Hospital DaytonGlucose Auto test strip (U) [Mass/Vol]NormalNormal mg/dLUnKindred Hospital DaytonGranular casts Computer assisted (U) [#/Area]OCCASIONALAbnormalNONE /LPFUniKeenan Private HospitalHyaline casts Auto (Urine sed) [#/Area]1+AbnormalNONE /LPFUniKeenan Private HospitalInterpretation and review of laboratory resultsAbnoWooster Community HospitalKetones (U) [Mass/Vol]150 (4+)AbnormalNEGATIVE mg/dLUnKindred Hospital DaytonLeukocyte esterase Auto test strip Ql (U) NegativeNEGATIVEUnKindred Hospital DaytonMucus Auto (Urine sed) [#/Area] 2+Reference range not established. /LPFUniKeenan Private HospitalNitrite Auto test strip Ql (U)NegativeNEGATIVEUnKindred Hospital DaytonpH (U)6 [pH]5.0, 5.5, 6.0, 6.5, 7.0, 7.5, 8.0UnKindred Hospital DaytonProtein (U) [Mass/Vol]30 (1+)AbnormalNEGATIVE, 10 (TRACE), 20 (TRACE) mg/dLUnKindred Hospital DaytonRBC (U) [#/Vol]NegativeNEGATIVEUnKindred Hospital DaytonRB Auto (Urine sed) [#/Area]1-2NONE, 1-2, 3-5 /HPFUnKindred Hospital DaytonSpecific gravity (U) [Rel density]>1.422Wlusklii2.005 - 1.035 [facility] CampusComment on above:Specific gravity of >1.050 may be falsely elevated due to interferences with measurement. If clinically indicated, repeat testing with an alternative method is available by contacting the laboratory within 24 hours.Urobilinogen (U) [Mass/Vol]NormalNormal mg/dL [facility] CampusWBC Auto (Urine sed) [#/Area]1-90Pbgfezow1-4, NONE /HPFUnKindred Hospital DaytonUnKindred Hospital Dayton Appearance (U)ClearNormalClearTrinity Health System West CampusComment on above:Performed By: #### 07230-3 #### LAVONNE Padilla ([id number]) [facility] ([facility]) [address] [place], [place] [address]Dzejlmwvk (U) [Mass/Vol]NegativeNormalNEGATIVETrinity Health System West CampusComment on above:Performed By: #### 03183-3 #### LAVONNE Padilla ([id number]) [facility] ([facility]) [address] [place], [place] [address]Juara (U)YellowNormalLight-Yellow, Yellow, Dark-Yellow [facility] CampusComment on above:Performed By: #### 96006-9 #### LAVONNE Padilla ([id number]) [facility] ([facility]) [address] [place], [place] [address]Jqbxhoc Auto test strip (U) [Mass/Vol]NormalNormalrmal [facility] CampusComment on above:Performed By: #### 16903-7 #### LAVONNE Padilla ([id number]) [facility] ([facility]) [address] [place], [place] [address]Lhubajkq casts Computer assisted (U) [#/Area]OCCASIONALAbnormal [facility] County HospitalComment on above:Performed By: #### 78533-8 #### LAVONNE Padilla ([id number]) [facility] ([facility]) [address] [facility], [place] [address]Ftedyst casts Auto (Urine sed) [#/Area]1+ /LPFAbnormalNONE [facility] CampusComment on above:Performed By: #### 77844-6 #### LAVONNE Padilla ([id number]) [facility] ([facility]) [address] [place], [place] [address]Totfnbs (U) [Mass/Vol]150 (4+)AbnormalNEGATIVEUnUniversity Hospitals Health SystemComment on above:Performed By: #### 13532-1 #### LAVONNE Padilla ([id number]) [facility] ([facility]) [address] [place] [place] [address]Mymtqvxry esterase Auto test strip Ql (U)NegativeNormalNEGATIVE [facility] CampusComment on above:Performed By: #### 28154-1 #### LAVONNE Padilla ([id number]) [facility] ([facility]) [address] [place], [place] [address]Ojzrl Auto (Urine sed) [#/Area]2+ /LPFNormalReference range not established.[facility] CampusComment on above: Performed By: #### 17064-0 #### LAVONNE Padilla ([id number]) [facility] ([facility]) [address] [place], [place] [address]Jogkuqs Auto test strip Ql (U)NegativeNormalNEGATIVEUnUniversity Hospitals Health SystemComment on above:Performed By: #### 78142-1 #### LAVONNE Padilla ([id number]) [facility] ([facility]) [address] [place] [address]xJ (U)6.0 [pH]Normal5.0, 5.5, 6.0, 6.5, 7.0, 7.5, 8.0UnUniversity Hospitals Health SystemComment on above:Performed By: #### 91605-7 #### LAVONNE Padilla ([id number]) [facility] ([facility]) [address] [place] [place] [address]Dnuqioh (U) [Mass/Vol]30 (1+)AbnormalNEGATIVE, 10 (TRACE), 20 (TRACE)[facility] CampusComment on above:Performed By: #### 93831-1 #### LAVONNE Padilla ([id number]) [facility] ([facility]) [address] [place] [place] [address]OYE (U) [#/Vol]NegativeNormalNEGATIVETrinity Health System West CampusComment on above:Performed By: #### 98771-3 #### LAVONNE Padilla ([id number]) [facility] ([facility]) [address] [place], [place] [address]VXR Auto (Urine sed) [#/Area]1-2NormalNONE, 1-2, 3-5Tr[facility] CampusComment on above:Performed By: #### 57207-6 #### LAVONNE Padilla ([id number]) [facility] ([facility]) [address] [place], [place] [address]Quyfijiw gravity (U) [Rel density]>1.724Npqlwt4.005-1.035 [facility] CampusComment on above:Result Comment: Specific gravity of >1.050 may be falsely elevated due to interferences with measurement. If clinically indicated, repeat testing with an alternative method is available by contacting the laboratory within 24 hours.Performed By: #### 74548-6 #### LAVONNE Padilla ([id number]) [facility] ([facility]) [address] [place], [place] [address]Oakoeorugywl (U) [Mass/Vol]NormalNormalNormalUniversEast Liverpool City HospitalComment on above:Performed By: #### 36705-0 #### LAVONNE Padilla ([id number]) [facility] ([facility]) [address] [place], [place] [address]LWC Auto (Urine sed) [#/Area]2-89Dnmtnkmt6-2, NONETrinity Health System West CampusComment on above:Performed By: #### 90376-2 #### LAVONNE Padilla ([id number]) [facility] ([facility]) [address] [place], [place] [address]VEUK US CAROTID ARTERY DUPLEX BILATERALon [id number] US CAROTID ARTERY DUPLEX BILATERALGulfport Behavioral Health System [id number] [place] [address] and Vascular Lab Report [facility] US CAROTID ARTERY DUPLEX BILATERAL Patient Name: CATHRYN BRANDON Reading Physician: [id number] Eduarda Valera MD Study Date: 12/13/2023 Ordering Physician: [id number] CATHRYN MERAZ MRN/PID: [id number] Technologist: Claudia Linares RVT Technologist 2: Date of /Age: 11 1985 / 37 years Gender: M Admission Status: Emergency Location Performed: [facility] Diagnosis/ICD: Syncope and collapse-R55 CPT Codes: 68708 Cerebrovascular Carotid Duplex scan complete CONCLUSIONS: Right Carotid: Findings are consistent with less than 50% stenosis of the right proximal internal carotid artery. Laminar flow seen by color Doppler. Right external carotid artery appears patent withno evidence of stenosis. The right vertebral artery is patent with antegrade flow. No evidence of hemodynamically significant stenosis in the right subclavian artery. Left Carotid: Findings are consistent with less than 50% stenosis of the left proximal internal carotid artery. Laminar flow seen by color Doppler. Left external carotid artery appears patent with noevidence of stenosis. The left vertebral artery is patent with antegrade flow. No evidence of hemodynamically significant stenosis in the left subclavian artery. Imaging & Doppler Findings: Right Plaque Morph: The proximal right internal carotid artery demonstrates heterogenous plaque. The distal right common carotid artery demonstrates heterogenous plaque. Left Plaque Morph: The proximal left internal carotid artery demonstrates heterogenous plaque. The distal left common carotid artery demonstrates heterogenous plaque. Right Left PSV EDV PSV EDV 137 cm/s CCA P 114 cm/s 99 cm/s CCA D 106 cm/s 76 cm/s 29 cm/s ICA P 87 cm/s 37 cm/s 74 cm/s ICA M 93 cm/s 91 cm/s ICA D 79 cm/s 201 cm/s ECA 172 cm/s 39 cm/s Vertebral 63 cm/s 155 cm/s Subclavian 201 cm/s Right Left ICA/CCA Ratio 0.8 0.8 00428 Eduarda Valera MD [facility] CenterXR CHEST 2 VIEWSon [id number] CHEST 2 VIEWSSTUDY: Chest Radiographs; 12/13/2023, 1121 INDICATION: Syncope. COMPARISON: None Available ACCESSION NUMBER(S): [id number] ORDERING CLINICIAN: MEDINA MURO TECHNIQUE: Frontal and lateral chest. FINDINGS: CARDIOMEDIASTINAL SILHOUETTE: Cardiomediastinal silhouette is normal in size and configuration. LUNGS: Lungs are clear. ABDOMEN: No remarkable upper abdominal findings. BONES: No acute osseous changes. IMPRESSION: No acute process. Signed by Cathryn Chao MDRegional Medical CenterXR Chest 2 Viewson [id number] acute process. Signed by Cathryn Chao MD TELERADIOLOGYSTUDY: Chest Radiographs; 12/13/2023, 112 INDICATION: Syncope. COMPARISON: None Available ACCESSION NUMBER(S): [id number] ORDERING CLINICIAN: MEDINA MURO TECHNIQUE: Frontal and lateral chest. FINDINGS: CARDIOMEDIASTINAL SILHOUETTE: Cardiomediastinal silhouette is normal in size and configuration. LUNGS: Lungs are clear. ABDOMEN: No remarkable upper abdominal findings. BONES: No acute osseous changes. TELERADIOLOGYWeCathryn haider MD - 12/13/2023 STUDY: Chest Radiographs; 12/13/2023, 1121 INDICATION: Syncope. COMPARISON: None Available ACCESSION NUMBER(S): [id number] ORDERING CLINICIAN: MEDINA MURO TECHNIQUE: Frontal and lateral chest. FINDINGS: CARDIOMEDIASTINAL SILHOUETTE: Cardiomediastinal silhouette is normal in size and configuration. LUNGS: Lungs are clear. ABDOMEN: No remarkable upper abdominal findings. BONES: No acute osseous changes. IMPRESSION: No acute process. Signed by Cathryn Chao MD [facility] Work Phone: Radiology Study observation (narrative)[facility] Work Phone: XR Chest 2 ViewsOrdered By: Cathryn Chao on 12-13-2023 [facility] Work Phone: ECHOCARDIOGRAM LIMITED W BUBBLE STUDYon 11-18-2022 ECHOCARDIOGRAM LIMITED W BUBBLE STUDYPatient Info Name: CATHRYN BRANDON Age: 36 years : 1985 Gender: Male Ht: 175 cm Wt: 108 kg BSA: 2.34 m2 HR: 68 bpm BP: 139 / 93 mmHg Heart Rhythm: Sinus Rhythm Technical Quality: Good Exam Date: 11/18/2022 12:50 PM Patient Status: Outpatient Ceiling Insulation Blower: Randa Solomon, BROOK, RVT Exam Type: ECHOCARDIOGRAM LIMITED W BUBBLE STUDY Study Info Indications Q21.1 - Atrial septal defect Referring Physician: AMBROSE DEL ROSARIO ; [id number] BMI: 35.29 kg/m2 Summary 1. Limited two-dimensional transthoracic echocardiogram is performed. 2. No patent foramen ovale evident (PFO) by agitated saline imaging. History/Risk Factors Tobacco Use: Current - Every Day If Any Current, Tobacco Type: Cigarettes If Current - Every Day AND Cigarettes, Amount: Heavy Tobacco Use (>=10/day) Family History: Diabetes Mellitus History/Risk Factors syncope. Procedure(s): Limited two-dimensional transthoracic echocardiogram is performed. 9ml Saline agitated with 1ml air, injected IV push per Lab Protocol. Atrial Septum No patent foramen ovale evident (PFO) by agitated saline imaging. Report Signatures Finalized by Natasha Mayo MD on 11/18/2022 04:35 [facility] CARDIAC EVENT MONITORon [id number] EVENT MONITORThis is a summary report. The complete report is available in the patient's medical record. If you cannot access the medical record, please contact the sending organization for a detailed fax or copy. ?? MARKUS REPORT ?? INDICATIONS: CHEST PAIN Baseline recording is normal sinus rhythm. Average heart rate is 74 bpm. Heart rate ranges from 39 bpm at 12:20 PM to 181 bpm. There is no atrial fibrillation. There are no significant pauses. 15 patient triggers for chest pain, dizziness, no symptom, flutter, shortness of breath. These are associated with sinus rhythm, sinus tachycardia, sinus arrhythmia, sinus rhythm with [facility] CT CALCIUM SCORE SCREENINGon [id number] CALCIUM SCORE SCREENINGEXAMINATION: CT CALCIUM SCORE SCREENING, SUPPLEMENTAL READ - 10/02/2022 COMPARISON: Chest radiograph dated 05/14/2022. HISTORY: ORDERING SYSTEM PROVIDED HISTORY: CAD screening, low CAD risk. ORDERING SYSTEM PROVIDED DIAGNOSIS CODES: Z82.49 Family history of premature CAD TECHNIQUE: A volume acquisition through the heart was obtained without IV contrast. Calcium scoring analysis to be performed by the Cardiology service and reported separately. Dose reduction techniques were achieved by using automated exposure control and/or adjustment of mA and/or kV according to patient size and/or use of iterative reconstruction technique. NONCARDIAC FINDINGS: Visualized portions of the thoracic aorta are normal in caliber. No pericardial effusion, pleural effusion, or pneumothorax are identified. Mild bronchial wall thickening is seen in both lungs. No airspace consolidation or other infiltrative process is identified in the visualized portions of the lungs. The liver has normal density measurements. No fracture or suspicious osseous lesion is identified. IMPRESSION: 1. Mild bronchial wall thickening in both lungs, likely an indicator of chronic inflammatory airways disease. 2. No other active process is identified in the visualized portions of the chest. Please see the separate report per Cardiology for details regarding coronary artery calcium scoring. [facility]/ Workstation ID: [id number] Dictated by: LAURE SEPULVEDA on WedOct 02, 2022 8:08:32 AM EDT Transcribed by: SHERRI SMALLWOOD on WedOct 02, 2022 8:31:50 AM EDT Finalized by: LAURE SEPULVEDA on WedOct 02, 2022 9:04:19 AM EDTFlower HospitalComment on above:Order Comment: Injury/Trauma or Illness?:Illness/Other How long have you had these symptoms (acute/chronic)?:Unknown Reason for exam?:CAD Screening, supplemental read Type of Exam?:Subsequent/Follow-up Additional signs and symptoms?:ECHOCARDIOGRAM COMPLETEon 10-02-2022 ECHOCARDIOGRAM COMPLETEPatient Info Name: CATHRYN BRANDON Age: 36 years : 1985 Gender: Male Ht: 175 cm Wt: 108 kg BSA: 2.34 m2 HR: 50 bpm BP: 138 / 93 mmHg Heart Rhythm: Sinus Rhythm Technical Quality: Fair Exam Date: 10/02/2022 6:55 AM Patient Status: Outpatient Ceiling Insulation Blower: Mariela Simon RDCS Exam Type: ECHOCARDIOGRAM COMPLETE Study Info Indications R55 - Syncope and collapse Referring Physician: AMBROSE DEL ROSARIO ; [id number] BMI: 35.29 kg/m2 Summary 1. Left ventricular systolic function is normal with an ejection fraction by Biplane Method of Discs of 62 %. 2. RV is enlarged with normal RV function. 3. The left ventricular diastolic function is normal. 4. No hemodynamically significant valvular disease. 5. There is a left to right atrial level shunt identified with color Doppler most likely a PFO or small ASD. Recommendations * Recommend limited echo with saline contrast and/or cardiac MRI as clinically appropriate. History/Risk Factors Tobacco Use: Former Family History: Diabetes Mellitus Procedure(s): Complete two-dimensional, color flow and Doppler transthoracic echocardiogram is performed. Left Ventricle Left ventricular chamber dimension is normal. Left ventricular systolic function is normal with an ejection fraction by Biplane Method of Discs of 62 %. Normal left ventricular mass. Left ventricular segmental wall motion is normal. The left ventricular diastolic function is normal. Right Ventricle RV is enlarged with normal RV function. Left Atria Left atrial chamber is normal with a left atrial volume index of 28 ml/m2 by BP MOD. Right Atria Right atrial chamber dimension is normal. Atrial Septum There is a left to right atrial level shunt identified with color Doppler most likely a PFO or small ASD. Aortic Valve The aortic valve is trileaflet. There is no aortic valve sclerosis. There is no aortic valve stenosis. There is no aortic valve regurgitation. Pulmonic Valve The pulmonic valve is normal. There is no pulmonic valve stenosis. There is trace pulmonic regurgitation. Mitral Valve The mitral valve has normal leaflets. There is no mitral valve stenosis. There is no mitral valve regurgitation. Tricuspid Valve The tricuspid valve leaflets are normal. There is no significant tricuspid valve stenosis. There is trace tricuspid valve regurgitation. There is no pulmonary hypertension, estimated right ventricle systolic pressure is 7 mmHg. Pericardium/Pleural There is no pericardial effusion. Inferior Vena Cava Normal inferior vena cava with >50% collapse upon inspiration consistent with normal right atrial pressure. Aorta The aortic measurements are indexed to age and body surface area. The aortic root is normal measuring 3.6 cm with an index of 1.6 cm/m2. The proximal ascending aorta is normal measuring 3.5 cm with an index of 1.5 cm/m2. Wall Motion Scoring Wall Motion Scoring Index: 1.00 Left Ventricular Outflow Tract Name Value Normal LVOT 2D LVOT Diameter 2.5 cm LVOT Doppler LVOT Peak Velocity 0.9 m/s LVOT Peak Gradient 3 mmHg LVOT Mean Gradient 2 mmHg LVOT VTI 21 cm LVOT VTI/AV VTI Ratio 0.7 LVOT Stroke Volume 101 ml LVOT Stroke Index 43.26 ml/m2 Pulmonic Valve Name Value Normal RVOT Doppler RVOT Peak Velocity 57 cm/s RVOT Peak Gradient 1 mmHg RVOT Mean Gradient 1 mmHg RVOT VTI 14 cm PV Doppler PV Peak Velocity 1.24 m/s PV Peak Gradient 6 mmHg PV Mean Gradient 4 mmHg PV VTI 31 cm PV Regurgitation Doppler KS Peak Gradient 4 mmHg KS Peak End Diastolic Velocity 101 cm/s Mitral Valve Name Value Normal MV Doppler MV Peak Velocity 1.06 m/s MV Peak Gradient 4 mmHg MV Mean Gradient 1 mmHg MV VTI 31 cm MV Decel [place] 512 cm/s2 MV PHT 60 ms MV Area (PHT) 3.7 cm2 4.0-5.0 MV Area (Cont Eq VTI) 3.3 cm2 MV Area Index (Cont Eq VTI) 1.40 cm2/m2 MV Diastolic Function MV E Peak Velocity 1.05 m/s (more content not included)...[facility] AmbulatoryECG 12 [place] 19-72-0401Orebiz RateOhioHealthP AxisOhioHealthP-R IntervalOhioHealthQ-T IntervalOhioHealthQ-T Interval (corrected)[facility] HospitalQ DurationOhioHealthQTC Calculation (Janette)[facility] AxisOhioHealthT AxisOhioHealthVentricular Rate OhioHealthOhioHealthXR CHEST PA/APon 47-08-9168QH CHEST PA/APEXAMINATION: XR CHEST PA/AP 05/14/2022 11:50 am HISTORY: ORDERING SYSTEM PROVIDED HISTORY: pain, TECHNOLOGIST PROVIDED HISTORY: Illness/Other Reason for exam: chest pain Cancer History: u Surgery, RadiationHistory: u Encounter Type: Initial Additional signs and symptoms: htn ORDERING SYSTEM PROVIDED DIAGNOSIS CODES: FINDINGS: The lungs are clear. There is no focal lung consolidation, pleural effusion or pneumothorax. Pulmonary vasculature is within normal limits. The cardiomediastinal silhouette is normal. IMPRESSION: 1. No acute cardiopulmonary disease. Workstation ID: [id number] Dictated by: FLORENCE ALSTON on WedMay 14, 2022 11:59:33 AM EDT Transcribed by: FLORENCE ALSTON on WedMay 14, 2022 11:59:33 AM EDT Finalized by: FLORENCE ALSTON on WedMay 14, 2022 11:59:33 AM EDTNoCincinnati Children's Hospital Medical CenterComment on above:Order Comment: Injury/Trauma or Illness?:Illness/Other How long have you had these symptoms (acute/chronic)?:Acute Reason for exam?:chest pain History of cancer?:u Surgeries, chemotherapy, or radiation?:u Type of Exam?:Initial Additional signs and symptoms?:htn Vital Signs Date TimeVital SignValuePerforming NzycbvyjdQtazwgvn36-79-9379 07:55-0400Body scifds314.26 cmMedina Solorioacher ASSOCIATE PROFESSOR OF EDUCATION Work Phone: [phone] [place], [place] 0107110-21-2025 07:55-0400 Body mass index (BMI) [Ratio]35.1 kg/f2HzfoatgnMedina Gillespierbacher ASSOCIATE PROFESSOR OF EDUCATION Work Phone: [phone] [place], [place] 0107110-21-2025 07:55-0400 Body kenwyvepbof56.9 [degF]Medina Masood ASSOCIATE PROFESSOR OF EDUCATION Work Phone: [phone] [place], [place] 0107110-21-2025 07:55-0400 Body fzqrna659.95 kgMedina Solorioacher ASSOCIATE PROFESSOR OF EDUCATION Work Phone: [phone] [place], [place] 0107110-21-2025 07:55-0400 Diastolic blood sqnqwenw67 mm[Hg]Medina Masood ASSOCIATE PROFESSOR OF EDUCATION Work Phone: [phone] [place], [place] 0107110-21-2025 07:55-0400 Heart rate74 /minMedina Gillespieelizabethroryr ASSOCIATE PROFESSOR OF EDUCATION Work Phone: [phone] [place], [place] 0107110-21-2025 07:55-0400 SaO2% (BldA) [Mass fraction]96 %Medina Gillespiesally ASSOCIATE PROFESSOR OF EDUCATION Work Phone: [phone] [place], [place] 0107110-21-2025 07:55-0400 Systolic blood yhleiulw086 mm[Hg]Medina Masood ASSOCIATE PROFESSOR OF EDUCATION Work Phone: [phone] [place], [place] 0107109-04-2025 08:40-0400 Body vqvwyl287.26 cmMedina Gillespierbacher ASSOCIATE PROFESSOR OF EDUCATION Work Phone: [phone] [place], [place] 0107109-04-2025 08:40-0400 Body mass index (BMI) [Ratio]35.4 kg/c1OcwxxlcnMedina Gillespierbacher ASSOCIATE PROFESSOR OF EDUCATION Work Phone: [phone] [place], [place] 0107109-04-2025 08:40-0400 Body uexmal091.86 kgJennifer Rohrbacher ASSOCIATE PROFESSOR OF EDUCATION Work Phone: [phone]09-04-2025 08:40-0400 Diastolic blood zckluhio26 mm[Hg]Medina Masood ASSOCIATE PROFESSOR OF EDUCATION Work Phone: [phone] [place], [place] 0107109-04-2025 08:40-0400 Heart rate79 /Antoniosalvador Rohrbacher ASSOCIATE PROFESSOR OF EDUCATION Work Phone: [phone] [place], [place] 0107109-04-2025 08:40-0400 Respiratory rate18 /minJennifer Rohrbacher ASSOCIATE PROFESSOR OF EDUCATION Work Phone: [phone] [place], [place] 0107109-04-2025 08:40-0400 SaO2% (BldA) [Mass fraction]96 %Medina Masood ASSOCIATE PROFESSOR OF EDUCATION Work Phone: [phone] [place], [place] 0107109-04-2025 08:40-0400 Systolic blood etjnihlo263 mm[Hg]Medina Masood ASSOCIATE PROFESSOR OF EDUCATION Work Phone: [phone] [place], [place] 0107106-23-2025 11:00-0400 Body dbxbva267.26 cmMedina Gillespierbacher ASSOCIATE PROFESSOR OF EDUCATION Work Phone: [phone] [place], [place] 0107106-23-2025 11:00-0400 Body mass index (BMI) [Ratio]35.1 kg/c8KrtjwddsMedina Gillespierbacher ASSOCIATE PROFESSOR OF EDUCATION Work Phone: [phone] [place], [place] 0107106-23-2025 11:00-0400 Body pqxidm361.95 kgMedina Gillespierbacher ASSOCIATE PROFESSOR OF EDUCATION Work Phone: [phone] [place], [place] 0107106-23-2025 11:00-0400 Diastolic blood jkzreisi34 mm[Hg]Medina Masood ASSOCIATE PROFESSOR OF EDUCATION Work Phone: [phone] [place], [place] 0107106-23-2025 11:00-0400 Heart rate69 /Nidannifer Rohrbacher ASSOCIATE PROFESSOR OF EDUCATION Work Phone: [phone] [place], [place] 0107106-23-2025 11:00-0400 Respiratory rate18 /minJonannifer Rohrbacher ASSOCIATE PROFESSOR OF EDUCATION Work Phone: [facility]06-23-2025 11:00-0400 SaO2% (BldA) [Mass fraction]95 %Medina Gillespiesally ASSOCIATE PROFESSOR OF EDUCATION Work Phone: [facility]06-23-2025 11:00-0400 Systolic blood mfwfejgh346 mm[Hg]Medina Gillespiesally ASSOCIATE PROFESSOR OF EDUCATION Work Phone: [facility]05-27-2025 10:14-0400 Diastolic blood emyodovy98 mm[Hg]Medina Gillespieelizabethrorymark ASSOCIATE PROFESSOR OF EDUCATION Work Phone: [facility]05-27-2025 10:14-0400 Heart rate65 /Deonte Gillespiesally ASSOCIATE PROFESSOR OF EDUCATION Work Phone: [facility]05-27-2025 10:14-0400 Systolic blood mm[Hg]Medina Wilksmark ASSOCIATE PROFESSOR OF EDUCATION Work Phone: [facility]04-29-2025 10:13-0400 Diastolic blood avcwhzkl11 mm[Hg][facility]04-29-2025 10:13-0400Heart rate57 /[facility]04-29-2025 10:13-0400Systolic blood nqtwvmxi030 mm[Hg][facility] 06-06-2024 10:12-0400Body .26 cmHol[facility] 06-06-2024 10:12-0400Body mass index (BMI) [Ratio]35.9 kg/l8FygxujftuHolzer Health System04-29-2025 10:12-0400Body oxlipa761.22 kgHolzer Health System04-29-2025 10:12-0400Respiratory rate18 /[facility]04-29-2025 10:12-5445MfK6% (BldA) [Mass fraction]97 %[facility]02-05-2025 08:38-0500Body .68 kgSaaustin Adamson NP Work Phone: [place] [address]Kwrsxttykm17-71-9665 08:38-0500Diastolic blood lsyytidw24 mm[Hg]Chetna Adamson RESPIRATORY THERAPIST Work Phone: [facility] HospitalHuprlsajja07-20-2465 08:38-0500Heart rate70 /min Chetna Adamson RESPIRATORY THERAPIST Work Phone: [facility] HospitalHiqiszbodc76-34-9557 08:38-9747OrS8% (BldA) [Mass fraction]97 %Chetna Adamson RESPIRATORY THERAPIST Work Phone: [facility] HospitalKfsiczklvk40-29-3138 08:38-0500Systolic blood xymdozvd279 mm[Hg]Chetna Adamson RESPIRATORY THERAPIST Work Phone: [facility] HospitalIozvnxnahw11-26-6544 10:00-0500Body rlwfpu087.26 cmHolzer Health System01-22-2025 10:00-0500Body mass index (BMI) [Ratio]35.1 kg/k1LlbswekscHolzer Health System01-22-2025 10:00-0500Body rwxreghpljr43.3 [degF][facility]01-22-2025 10:00-0500Body qzhmur632.95 kgHolzer Health System01-22-2025 10:00-0500Diastolic blood gmjhibsd99 mm[Hg][facility]01-22-2025 10:00-0500 Heart rate82 /minHolzer Health System01-22-2025 10:00-9522AnG3% (BldA) [Mass fraction]98 %[facility]01-22-2025 10:00-0500 Systolic blood mm[Hg][facility]01-07-2025 08:25-0500Body vfeyfv659.95 kgChristopher Liborio DO Work Phone: [facility] HospitalNhdpaiaacj28-04-2355 08:25-0500Diastolic blood zzegftdu84 mm[Hg]Babita Capone DO Work Phone: noSaint [facility] HospitalTjxwsntstd40-48-6843 08:25-0500Heart rate59 /min Babita Capone DO Work Phone: [facility] HospitalTrqmoridqy19-83-9497 08:25-1043JuB8% (BldA) [Mass fraction]91 %Babita Capone DO Work Phone: [facility] HospitalBryrbrnqtp14-91-6905 08:25-0500Systolic blood mm[Hg]Babita Capone DO Work Phone: [facility] HospitalXwepdeomnt44-81-4162 14:00-0500Diastolic blood ufslcnmw41 mm[Hg]Medina Muro DO Work Phone: [phone]11-04-2024 14:00-0500 Heart rate84 /Deonte Almeidaphrey DO Work Phone: [address] [place], [place] 4703711-04-2024 14:00-0500 Respiratory rate15 /Deonte Almeidaphrey DO Work Phone: [phone]11-04-2024 14:00-0500 SaO2% (BldA) [Mass fraction]97 %Medina Muro DO Work Phone: [phone]11-04-2024 14:00-0500 Systolic blood peytkkuc824 mm[Hg]Medina Guilloryrey DO Work Phone: [address] [place], [place] 4703711-04-2024 12:50-0500 Body temperatureMedina Almeidaphrey DO Work Phone: [phone] [place], [place] [address] on above: NOTE: Patient Results are Not Corrected for Yctmuxskdph58-57-1270 11:48-0500Body temperatureNO [facility] NorthComment on above:Result Comment: NOTE: Patient Results are Not Corrected for TemperaturePerformed By: #### [id number] #### LAVONNE Padilla ([id number]) [facility] ([facility]) [address] [place], [place] [id number] 10:24-0500Body fqvylq661.3 cmJennifer Muro DO Work Phone: [phone] [place], [place] 3378511-04-2024 10:24-0500 Body mass index (BMI) [Ratio]35.44 kg/y6NvfhjojdMedina Muro DO Work Phone: [facility]11-04-2024 10:24-0500 Body jaawqsfaxxn74.2 [degF]Medina Muro DO Work Phone: [facility]11-04-2024 10:24-0500 Body .86 kgMedina Muro DO Work Phone: [facility]02-19-2024 08:39-0500 Body ncnvun295.3 cmEyulissa Negrete CNP Work Phone: 1(713) [phone]nximf98-51-3688 08:39-0500Body mass index (BMI) [Ratio]35.59 kg/t3TetfmsDeya Negrete CNP Work Phone: 1(807) [phone]xqpmc80-98-6493 08:39-0500Body koiusr878.32 kg Deya Negrete CNP Work Phone: 1(525) [phone]rvpig35-75-7694 08:39-0500Diastolic blood kwxpxxug91 mm[Hg]Deya Negrete CNP Work Phone: 1(969) [phone]dulsl26-41-4128 08:39-0500Heart rate63 /minEyulissa Negrete CNP Work Phone: 1(746) [phone]plyfo60-35-3347 08:39-5788LaF0% (BldA) [Mass fraction]96 %Deya Negrete CNP Work Phone: 1(116) [phone]pmbph03-72-1252 08:39-0500Systolic blood pressure 135 mm[Hg]Deya Negrete CNP Work Phone: 1(384) [phone]eapaw41-48-0434 09:13-0400Body bpufbq302.3 cm Ambrose Del Rosario MD Work Phone: 1(487) [phone]wosbe10-99-6270 09:13-0400Body mass index (BMI) [Ratio]35.37 kg/l5RkaepelsfgAmbrose Del Rosario MD Work Phone: 1(869) [phone]rclmo52-42-8698 09:13-0400Body .64 kg Ambrose Del Rosario MD Work Phone: 1(809) [phone]sdgrx39-17-8689 09:13-0400Diastolic blood oxjqsgds13 mm[Hg]Ambrose Del Rosario MD Work Phone: 1(489) [phone]aeems37-56-8096 09:13-0400Heart rate65 /min Ambrose Del Rosario MD Work Phone: 1(505) [phone]oybdt97-38-6919 09:130200DqO3% (BldA) [Mass fraction]94 %Ambrose Del Rosario MD Work Phone: 1(504) [phone]rwqrh90-52-4992 09:13-0400Systolic blood pressure 138 mm[Hg]Ambrose Del Rosario MD Work Phone: 1(980) [phone]eyomj97-63-3558 10:01-0400Body awfjrq909.3 cmLee Siena Morgany PRECINCT CAPTAIN Work Phone: IrhoPepcyq92-159315PqpcZscjpt78-63-9983 10:01-0400Body mass index (BMI) [Ratio]34.56 kg/m2Lee Siena Es PRECINCT CAPTAIN Work Phone: RjjlFvvozz78-870990RgmyLgrajx09-99-1311 10:01-0400Body naxrotvdusi73.9 [degF]Jewels Es PRECINCT CAPTAIN Work Phone: JzfrEdtxcf01-691217GedtMmckgs35-50-3215 10:01-0400Body icuchl291.14 kgLee Siena Es PRECINCT CAPTAIN Work Phone: AzxqVlmjlf94-477167ZvvpBjluzi78-61-2542 10:01-0400Diastolic blood mm[Hg]Jewels Es PRECINCT CAPTAIN Work Phone: EjnyYelyfy25-606968JgryDbiahb84-66-5830 10:01-0400Heart rate67 /minLeamrik Siena Es PRECINCT CAPTAIN Work Phone: BnbhExximk78-870907CthmQqpogs91-45-3057 10:01-5267RgV7% (BldA) [Mass fraction]97 %Eleazar Burton PRECINCT CAPTAIN Work Phone: [phone]knifk28-43-3575 10:010400Systolic blood pressure 133 mm[Hg]Eleazar Burton PRECINCT CAPTAIN Work Phone: [facility] Encounters Encounter DateEncounter TypeCare ProviderFacilityStart: 11-28-2024 End: 23-63-0803armwfeafeoWkvoqnak Rohrbacher ASSOCIATE PROFESSOR OF EDUCATION Work Phone: [facility]: 11-28-2024 End: 36-34-0681Oeibgvw encounter procedureJennifer Vernarbacher ASSOCIATE PROFESSOR OF EDUCATION [facility] Work Phone: Start: 11-28-2024 End: 62-37-1562Qrqtkqj encounter statusJennsalvador Solorioacher ARSALAN [facility] Healthcaretart: 10-12-2024 End: 98-18-8765mnacnaslwwPigtvdxm Vernarbacher ASSOCIATE PROFESSOR OF EDUCATION Work Phone: [facility] Work Phone: Start: 10-12-2024 End: 29-83-1548Oalnzum encounter procedureAshley Rascon MD-[facility] Work Phone: Start: 07-31-2024 End: 84-17-3627Hanifmj encounter procedureAshley Rascon MD-[facility] Work Phone: Start: 18-48-4842Nbl-patient / Non-visitJonannifer Vernarbacher ASSOCIATE PROFESSOR OF EDUCATION Work Phone: [facility] Work Phone: Start: 07-04-2024 End: 13-14-6396Btscxbh encounter procedureJennifer Vernarbacher ASSOCIATE PROFESSOR OF EDUCATION Work Phone: [facility] Work Phone: Start: 07-04-2024 End: 91-02-1474jerrphwtiyUsatarbk Vernarbacher ASSOCIATE PROFESSOR OF EDUCATION Work Phone: [facility] Work Phone: Start: 06-06-2024 End: 90-90-9916bgangumffoNfqjt [facility] Work Phone: Start: 06-06-2024 End: 23-76-3362Cbgsmjc encounter procedureFormerly [facility] Physician [facility] Work Phone: Start: 03-15-2024 End: 31-74-0506Qgnhjn Charanjit Adamson RESPIRATORY THERAPIST Work Phone: ana BELLEVUEStart: 03-15-2024 End: 84-73-7327Xuuhjz Charanjit Adamson RESPIRATORY THERAPIST Work Phone: ana BELLEVUEStart: 03-15-2024 End: 03-11-1387Xgnesw outpatient visit 15 minutesSaaustin Adamson RESPIRATORY THERAPIST Work Phone: ana BELLEVUEComment on above:Loss of consciousness (CMS/HCC) (Primary Dx); PFO (patent foramen ovale)Start: 03-15-2024 End: 05-53-2930kqqrzmzesgEFKDE CARROLLNot AvailableStart: 03-01-2024 End: 44-68-9340txlndsporpFnzzzuybrOhioHealth [facility] Work Phone: Start: 03-01-2024 End: 08-87-1556Vodwhys encounter procedureFormerly [facility] Physician [facility] Work Phone: Start: 02-21-2024 End: 85-89-5423vaujbqefruIRPZXGUGQOS HASSETTNot AvailableStart: 02-17-2024 End: 32-23-5086Llzvktixyftuw procedureAlixanoelle Howell [facility] CenterioHealth [facility] & Vascular PhysiciansStart: 02-15-2024 End: 23-52-3517Dfcqfn flowsheetChristopher Liborio DO Work Phone: [facility] R[facility]TEStart: 02-15-2024 End: 34-94-6793Vdrgmg flowsheetChristopher Liborio DO Work Phone: [facility] [address] R[address]TEStart: 02-15-2024 End: 77-44-4518Fdsryp outpatient new 45 minutesChristopher Capone DO Work Phone: noms [facility] ROUTEComment on above:Loss of consciousness (CMS/HCC) (Primary Dx); PFO (patent foramen ovale)Start: 02-15-2024 End: 38-35-2776hfsblufzghQWOKECVBTPY AIETTNot AvailableStart: 12-13-2023 End: 21-97-2581Yebzrgrbc department patient visitMedina Muro DO Work Phone: [facility] Emergency MedicineComment on above:Syncope, unspecified syncope type (Primary Dx); Seizure-like activity (Multi); Syncope and collapseStart: 03-29-2023 End: 01-08-1992jkangewabqLICClay County Medical Center AmbulatoryStart: 03-29-2023 End: 73-43-9070Irjkhz outpatient visit 25 minutesDeya Veronica Caden MOLINA Work Phone: [facility] Heart & Vascular PhysiciansComment on above:Vasovagal syncope (Primary Dx)Start: 10-02-2022 End: 22-13-3270zevraoorcwOGJKGQBVCN EstherShanika [facility] HospitalStart: 10-02-2022 End: 00-28-0166xbaffwobzuVZQ ANN [facility] HospitalStart: 08-25-2022 End: 62-06-7781tbcdzebnxfYTU SIENA [facility] HospitalStart: 08-24-2022 End: 56-40-7784hunngkyxvgVORClay County Medical Center AmbulatoryStart: 08-24-2022 End: 21-03-1594Zerjop outpatient new 45 minutesEleazar Burton CNP Work Phone: [facility] Heart & Vascular PhysiciansComment on above:Syncope, unspecified syncope type (Primary Dx); Chest pain, unspecified type; Family history of premature CAD; Hyperlipidemia, unspecified hyperlipidemia typeStart: 05-14-2022 End: 41-49-2362Eaaqijgut department patient visitPomerene Hospitaltart: 05-14-2022 End: 12-30-7285rimywvjsjgERW ANN AKIRAOhioHealth [facility] AmbulatoryStart: 05-14-2022 End: 01-88-9722Mwdxqgekd for general adult medical examination without abnormal findingsLEAmrik CHAMPION [facility] AmbulatoryStart: 05-14-2022 End: 97-43-8996Srwjduz encounter statusLeamrik Burton PRECINCT CAPTAIN Work Phone: [facility] Work Phone: [phone]: 05-14-2022 End: 19-13-9758Qduszvfy preventive med est patient 18-39 yrsLeamrik Burton PRECINCT CAPTAIN Work Phone: [facility] Primary Care PhysiciansComment on above: Well adult exam (Primary Dx); Vitamin D deficiency; Chest pain, unspecified type Procedures DateProcedureProcedure DetailPerforming ClinicianStart: 28-51-8224Wz head/brain w/o contrast materialJames P Kt DO Work Phone: Start: 99-14-7335Zjnwbm scan extracranial art compl bi studyJames P Kt DO Work Phone: Start: 34-94-8149Gi abdomen & pelvis w/contrast materialJennifer M Muro DO Work Phone: Start: 23-71-0283Zs angiography chest w/contrast/noncontrastJennifer M Muro DO Work Phone: Start: 12-13-2023 End: 62-37-4404Wjjaynuafymwt metabolic panelJochristiano Guerin DO Work Phone: Start: 76-08-1397Swkpyqjb I.cardiac panel - Serum or Plasma by High sensitivity methodJochristiano Guerin DO Work Phone: Start: 67-34-9516Isxossqwtb exam chest 2 viewsJochristiano Guerin DO Work Phone: Start: 51-02-4096Lxzohls quantitative blood xcpt reagent stripJeluis Muro DO Work Phone: Start: 62-18-1650Tfzresfzbr complete W Reflex Culture panel - UrineJochristiano Guerin DO Work Phone: Start: 59-48-3879Hbcic dip stick/tablet reagent auto microscopyJo Harleenpromedica memorial hospital DO Work Phone: Start: 79-25-4298Wgfzjt-up visitFollow-upCANBY MEDICAL CENTERNATASHA VERONICA TJtart: 06-54-6677Dmj routine ecg w/least 12 lds w/i&rLee Siena Burton CNP Work Phone: Start: 35-91-5649Lltlg depression screening assessment Eleazar Burton CNP Work Phone: Plan of Treatment DateCare ActivityDetailAuthorStart: 26-93-4448Xwokvl Vaccines (1 of 2)Zoster Vaccines (1 of 2)[facility] CampusStart: 07-06-2024 End: 69-29-7582Xrialqs encounter ldeciaesf22/29/2025 8:40 AM EDT Office Visit NATHALIE DANIELA [address] [place] [phone] Chetna Adamson NP [address] [place] [phone] N[facility]ITALtart: 21-27-8200NytlimtfoUniversity Hospitals St. John Medical Centertart: 03-15-2024 End: 70-16-4612Vmhvwxx encounter procedureNOOHIOHEALTH SHELBY HOSPITAL ROUTEComment on above:ArrivedStart: 96-20-0405Jgjeplx referralWvumedicine [facility] Work Phone: Start: 02-21-2024 End: 12-06-0374Bnuvgetezrix / ancillary services wtdoymmocf83/13/2025 8:45 AM EST Ancillary Procedure [facility] [address] [address] [place] [phone] NOOHIOHEALTH SHELBY HOSPITAL ROUTEStart: 02-15-2024 End: 30-68-9149MXS, Including Recording Awake or AsleepEEG, Including Recording Awake or Asleep Neurology Routine Loss of consciousness (CMS/HCC) Expected: 02/15/2024 (Approximate), Expires: 02/14/2025[facility] Work Phone: comment on above:Expected: 02/15/2024 (Approximate), Expires: 02/14/2025Start: 02-15-2024 End: 44-20-8901KJ Brain WO and W contrast IVMR brain w and wo contrast routine Imaging Routine Loss of consciousness (CMS/HCC) Expected: 02/15/2024, Expires: 02/14/2025[facility] HealthcareComment on above:Expected: 02/15/2024, Expires: 02/14/2025Start: 02-15-2024 End: 46-41-1014Iwmseco encounter wozuhghkr32/07/2025 8:30 AM EST Office Visit [facility] [address] [place] [phone] Babita Capone, [address] [place] [address] ArrivedNOOHIOHEALTH SHELBY HOSPITAL ROUTEComment on above:ArrivedStart: 12-20-2023 End: 17-20-2970EW Brain WO contrastMR brain wo IV contrast Imaging Routine Seizure-like activity (Multi) Expected: 12/20/2023, Expires: 12/12/2024[facility] Area Work Phone: Comment on above:Expected: 12/20/2023, Expires: 12/12/2024Start: 75-46-6040YWBBG-19 Vaccine ( season)COVID-19 Vaccine ( season)[facility]: 38-38-2273Kztcatpsu vaccinationInfluenza Vaccine (#1)[facility]: 05-16-6870HVCNF-19 Vaccine (#1)COVID-19 Vaccine (#1)[facility]HealthComment on above: Postponed from 06/12/1984 (Patient Refused)Start: 22-89-1078Idkyfvhpjy screening using PHQ-9 (Patient Health Questionnaire 9) scoreOhioHealthStart: 05-15-2023 Hepatitis C screeningHepatitis C ScreeningOhioHealthComment on above:Postponed from 12/13/2001 (Patient Refused)Start: 06-85-3120Ptwepjd and physical examination, annual for health maintenanceR[facility]ide [facility] VisitOhioHealthStart: 00-94-3299ZYJ screeningHIV ScreeningOhioHealthComment on above:Postponed from 12/13/1998 (Patient Refused)Start: 66-18-7782Npgtnexpcopz Vaccine: Ped or At- Risk (1 - PCV)Pneumococcal Vaccine: Ped or At-Risk (1 - PCV)[facility]HealthComment on above:Postponed from 12/13/1989 (Patient Refused)Start: 68-99-5039Hmgvbta vaccinationTetanus: Every 10yrsOhioHealthComment on above:Postponed from 1983 (Patient Refused)Start: 98-75-5785XKLAM-19 Vaccine ( season)COVID-19 Vaccine ( - season)[facility]HealthStart: 80-52-3236Lfrtmarkm vaccinationOhioHealthStart: 75-39-2742XRgF/Tdap/Td Vaccines (1 - Tdap) DTaP/Tdap/Td Vaccines (1 - Tdap)[facility]: 32-82-9112Lkevevidu B Vaccines (1 of 3 - 19+ 3-dose series)Hepatitis B Vaccines (1 of 3 - 19+ 3-dose series)[facility]: 12-13-2001 Hepatitis C screeningHepatitis C ScreeningUnKindred Hospital [place] Start: 11-21-0679CVW screeningHIV ScreeningOhioHealthStart: 14-87-9832Ipoxfvcfz vaccinationVaricella Vaccines (1 of 2 - 13+ 2-dose series)[facility]: 71-93-0278PVJ Vaccines (1 of 1 - Standard series)MMR Vaccines (1 of 1 - Standard series)[facility]: 87-17-4722ZQT screeningHIV ScreeningUnSt. Vincent Hospital: 93-44-9768Zldof panelLipid PanelFirelands Regional Medical Center South CampusStart: 66-51-7261Fdxwsil vaccinationTetanus: Every 10yrsOhioHealthStart: 27-76-5322Uschsi Adult Physical Yearly Adult PhysicalFirelands Regional Medical Center South Campus End: 88-97-4289Battujy computed tomography for calcium scoringCT CALCIUM SCORE SCREENING Imaging Routine Family history of premature CAD 1 Occurrences starting 08/24/2022 until 08/25/2023OhioHealthComment on above:1 Occurrences starting 08/24/2022 until 08/25/2023 End: 88-97-4716Tssdkcg event recordingCardiac event monitor Cardiac Services Routine Chest pain, unspecified type Syncope, unspecified syncope type 1 Occurrences starting 08/24/2022 until 10/26/2023OhioHealthComment on above:1 Occurrences starting 08/24/2022 until 10/26/2023 End: 84-18-5722SKJ panel - Blood by Automated countCBC Lab Routine Well adult exam 1 Occurrences starting 05/14/2022 until 05/15/2023[facility] Work Phone: Comment on above:1 Occurrences starting 05/14/2022 until 4CBC panel - Blood by Automated countCBC Lab Routine Well adult exam 05/14/2022 10:53 AM EDTOhioHealth End: 28-19-7249Fjzxvkgwbzapi metabolic 2000 panel - Serum or PlasmaComprehensive Metabolic Panel Lab Routine Well adult exam 1 Occurrences starting 05/14/2022 until 05/15/2023OhioHealthComment on above:1 Occurrences starting 05/14/2022 until 05/15/2023omprehensive metabolic 2000 panel - Serum or Plasma Comprehensive Metabolic Panel Lab Routine Well adult exam 05/14/2022 10:53 AM EDTOhioHealthComprehensive metabolic 1999 panel - Serum or PlasmaHolzer Health System End: 71-71-8147RLC [address] [place] [address] Work Phone: Comment on above:Once for 1 Occurrences starting 12/13/2023 until 12/13/2023 End: 06-08-7791GmmnuprimgymowkyIxoxdzeykxdgzw complete Echocardiography Routine Syncope, unspecified syncope type 1 Occurrences starting 08/24/2022 until 10/26/2023[facility] Work Phone: Comment on above:1 Occurrences starting 08/24/2022 until 10/26/2023 End: 09-78-3068Glzdl Urine [facility] Work Phone: Comment on above:Once for 1 Occurrences starting 12/13/2023 until 12/13/2023 End: 67-32-7304Mduynsfhsv A1c/Hemoglobin.total in BloodHemoglobin A1c Lab Routine Well adult exam 1 Occurrences starting 05/14/2022 until 05/15/2023 OhioHealthComment on above:1 Occurrences starting 05/14/2022 until 05/15/2023 Hemoglobin A1c/Hemoglobin.total in BloodHemoglobin A1c Lab Routine Well adult exam 05/14/2022 10:53 AM EDTOhioHeal End: 53-27-2452Lpkeg 1996 panel - Serum or PlasmaLipid Panel Lab Routine Well adult exam 1 Occurrences starting 05/14/2022 until 05/15/2023OhioHealthComment on above:1 Occurrences starting 05/14/2022 until 05/15/2023Lipid 1996 panel - Serum or PlasmaLipid Panel Lab Routine Well adult exam 05/14/2022 10:53 AM EDT [facility] referral[facility] Work Phone: End: 98-16-5920Diumbqhjbqh [Units/volume] in Serum or PlasmaTSH with Reflex Free T4 Lab Routine Well adult exam 1 Occurrences starting 05/14/2022 until 05/14/19 24OhioHealthComment on above:1 Occurrences starting 05/14/2022 until 05/14/2023 Thyrotropin [Units/volume] in Serum or PlasmaTSH with Reflex Free T4 Lab Routine Well adult exam 05/14/2022 10:53 AM EDTOhiNJealthTilt table testHolzer Health System End: 03-94-7858Ycukrjmdbc complete W Reflex Culture [facility] - [facility] Work Phone: comment on above:Once (Lab) for 1 Occurrences starting 12/13/2023 until 12/13/2023US.doppler Carotid arteries - bilateralCarotid duplex bilateral Vascular Ultrasound STAT Syncope, unspecified syncope type 12/13/2023 2:59PM [facility] Work Phone: End: 81-01-5224Jcyvjbv D, 25-hydroxy measurementVitamin D, Total, 25-OH Lab Routine Well adult exam 1 Occurrences starting 05/14/2022 until 05/15/2023 OhioHealthComment on above:1 Occurrences starting 05/14/2022 until 05/15/2023 Vitamin D, 25-hydroxy measurementVitamin D, Total, 25-OH Lab Routine Well adult exam 05/14/2022 10:53 AM [facility] Payers DatePayer CategoryPayerPolicy [id number] Care (Private)[facility] .[id number] Health [id number] Health [id number] Cross Blue ShieldANTHEM MEDICAID [place] [id number] 2023MedicaidANTHEM MEDICAID [place] [id number] 2022-Present [phone] [address] [address] [place] [id number] [id number] [id number] [id number] [id number] 2.16.840.1.883321.3.579.2.03817-65-2314Rnigabn [id number] 2.16840.1.621150.3.57[id number] 2.840.1.839142.3.57[id number] 2.16.840.1.585379.3.57[id number] 2..840.1.732621.3.57[id number] 2.16.840.1.406353.3.57[id number] 2.16.840.1.960322.3.57[id number] 2.16.840.1.298906.3.57[id number] 2.16.840.1.626880.3.57[id number] 2.16.840.1.70[id number] 2.16.840.1.705927.3.579.2.531 [id number] 2.16.840.1.698187.3.579.2.531 Social History DateTypeDetailFacilityStart: 34-75-5095Obppplc smoking status NHISSmokes tobacco dailyOhioHealthStart: 01-11-2002 End: 18-71-6819Wghafiu of tobacco useCigarette SmokerOhioHealthStart: 05-14-2022 End: 29-67-9891Buftkizipa smoked current (pack per day) - Reported0.5[facility] Start: 05-14-2022 End: 43-91-3487Krqqzht use and exposureFormer smokeless tobacco userOhioHealth Start: 05-14-2022 End: 06-16-3055Hgdnktk intakeEx-drinker (finding)OhioHealthStart: 05-14-2022 Tobacco CommentVaped for 5 yearsOhioHealthStart: 38-31-4840Hflfzjj Comment occasionallyOhioHealthStart: 43-07-5159Iel Assigned At BirthNot on file OhioHealthStart: 08-24-2022 End: 38-95-2543Qieqoh identityNot on fileMdioHealthStart: 05-04-2022 End: 48-96-0522Wzrbiskt to SARS-CoV-2 (event)Not sureOhioHealthStart: 08-24-2022 End: 44-50-3617Jmjjgga intakeLifetime non-drinker (finding)OhioHealthHow hard is it for you to pay for the very basics like food, housing, medical care, and heatingSomewhat hardOhioHealthAdult Depression Screening Vwqloqhdor9YpseDbbmxm (I/We) worried whether (my/our) food would run out before (I/we) got money to buy more.Never trueOhioHealthThe food that (I/we) bought just didn't last, and (I/we) didn't have money to get more.Sometimes trueOhioHealthStart: 03-29-2023 End: 32-30-8840Vjghyjp smoking status NHISEx-smokerOhioHealthStart: 01-11-2002 End: 61-89-9466Uxlwcnb of tobacco useCurrent smokerOhioHealthStart: 11-18-2022 Gender identityIdentifies as male gender (finding)[place] JerseyHealthStart: 11-18-2022 Sexual orientationHeterosexual (finding)[place] JerseyHealthStart: 04-67-5525Nnfxzjt smoking status NHISNever smoked tobaccoFirelands Regional Medical Center [facility] Work Phone: Start: 12-13-2023 End: 07-59-1117Gbdzafk use and exposureSmokeless tobacco non-userUnKindred Hospital [facility] Work Phone: Tobacco smoking status NHISTobacco smoking consumption Kindred HealthcareStart: 03-01-2024 End: 66-49-0673CjjYjmn (finding)[facility] Centertart: 11-10-4158Iqp Assigned At [facility] Hospitaltart: 54-50-1073Ocftmmq CommentDrinkHeartland Behavioral Health Services Clinical Notes 05-14-2022 to 10-12-2024 Note Date & IkyeZtlmXtqwsmmw46-30-6109 Evaluation note* Diagnosis Onset Date Resolution Status Admit Date Patent foramen ovale acuteSeptember 2024 8:31amSyncopeacuteSeptember 2024 8:31amVasovagal syncopeacuteSeptember 2024 8:31amScreening for deficiency anemiaacute November 28, 2024 7:54amScreening for lipid disordersacuteOct2024 7:54amScreening for metabolic disorderacuteOct2024 7:54amScreening for prostate canceracuteOct2024 7:54amWellness examinationacute November 28, 2024 7:54am [facility] Work Phone: 1(286) 922-771106-23-2025 Evaluation note* Diagnosis Onset Date Resolution Status Admit Date Patent foramen ovale acuteJune 2024 10:53amSyncopeacuteJune 2024 10:53amVasovagal syncope acuteJune 2024 10:53amPatent foramen ovaleacuteSeptember 2024 8:31am SyncopeacuteSeptember 2024 8:31amVasovagal syncopeacuteSeptember 2024 8:31am [facility] Work Phone: 1(640) 713-359704-29-2025 Evaluation note* Diagnosis Onset Date Resolution Status Admit Date Patent foramen ovale acuteApril 2024 10:00amSyncopeacuteApril 2024 10:00amVasovagal syncopeacuteApril 2024 10:00am [facility] Work Phone: 1(216) 696-366701-09-2025 History of Present illness Narrative* Abbe Howell RN - 02/17/2024 1:30 PM EST Patient called in to inform our office that he has moved to [place] and 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 Recall deleted. Advised to call our office if anything changes or if he needs to be seen. documented in this [id number] History of Present illness Narrative* Babita Capone DO - 02/15/2024 8:30 AM EST Images from the original note were not included. Chief complaint: Loss of consciousness Subjective Cathryn Rangeljeffersonamish, 38 y.o., male Patient presents today for a neurologic consult for syncope with collapse. Patient states in December he was hunting and he started to feel nauseous, dizzy and was sweating. He states he lost consciousness for about one minute. He reports loss of bladder and headache after. He denies any tongue bite but reports he did chip a tooth during this time. He states this happened one other time about oneyear prior. He has been monitoring blood sugar since this event and those have been normal. At thattime he had drank about 3 energy drinks. He has since stopped drinking energy drinks and smoking. He denies any prior EEG. Review of Systems Constitutional: Negative for appetite change, fatigue and fever. Respiratory: Negative for cough, shortness of breath and wheezing. Cardiovascular: Negative for chest pain, palpitations and leg swelling. Gastrointestinal: Negative for abdominal pain, constipation, diarrhea and nausea. Musculoskeletal: Negative for arthralgias, gait problem and myalgias. Neurological: Positive for syncope. Negative for dizziness, tremors, numbness and headaches. No past medical history on file. No past surgical history on file. No family history on file. Social History Tobacco Use Smoking status: Not on file Smokeless tobacco: Not on file Substance Use Topics Alcohol use: Not on file Allergies: Patient has no known allergies. Vitals: 02/15/24 0825 BP: 138/90 Pulse: 59 SpO2: 91% There is no height or weight on file to calculate BMI. weight: 249 lb Neurologic exam: Mental status: Awake, alert to person, place and time. Recent and remote memory are intact. Language is fluent without aphasia. Attention and concentration are normal. Fund of knowledge is appropriate for level of education. Cranial nerves: CN II: Visual acuity is normal. Visual barragan full to confrontation. CN III, IV, : pupils equal round and reactive to light. Extraocular movements intact. No ptosis present. CN V: Facial sensation is normal. CN VII: Full and symmetric facial movement. CN VIII: Hearing is normal to finger rub bilaterally: CN IX and X: Palate elevates symmetrically. CN XI: Shoulder shrug is normal bilaterally. CN XII: Tongue is midline without atrophy or fasciculation. Motor: RUE Strength deltoid, , biceps , triceps , wrist extensors , wrist flexor , sales development associate strength 5/5. LUE Strength deltoid , biceps , triceps , wrist extensors , wrist flexor , sales development associate strength 5/5. RLE Strength illopsoas, quadriceps, tibialis anterior, and gastrocnemius strength 5/5. LLE Strength illopsoas, quadriceps, tibialis anterior, and gastrocnemius strength 5/5. Normal tone x4 extremities. Bulk is normal. Sensory: Sensation is intact to light touch throughout Four extremities. Reflexes: RUE biceps reflex 2+ brachioradialis reflex 2+ . LUE biceps reflex 2+ brachioradialis reflex 2+ . RLE knee reflex 2+ . LLE knee reflex 2+ . Conway's sign negative. Coordination: Nixlol-ks-ilsg testing and rapid alternating movements are normal Gait: Normal Review and summary of old records: CT of the brain without contrast on 12/13/2023: No acute infarct or hemorrhage Carotid ultrasound on 12/13/2023: Less than 50 percent stenosis of the proximal right and left internal carotid artery. Antegrade vertebral flow. No hemodynamically significant stenosis of the subclavian arteries. Patient states he has seen [facility] in [place] and has had echocardiogram identified a PFO and heart monitor. Assessment/Plan Diagnoses and all orders for this visit: Syncope, unspecified syncope type It is my impression that the patient has suffered a syncopal episode in December and 1 other such occurrence. He did feel hot and sweaty prior to the episode. He did note a potential provoking factorof multiple energy drinks prior to the event. He did have a CT scan and carotid ultrasound which were unremarkable. Neurological exam is unremarkable. Unable to exclude an epileptic event. However, this seems to be more consistent with a vasovagal type syncope. Patient denies risk factors of epilepsy. No family history, personal history of seizure and no history of brain surgery/trauma. Plan: MRI of the brain with and without contrast to assess for any epileptiform abnormalities or focus that may be contributing to symptoms. Routine EEG to assess for any epileptiform abnormalities which may be contributing to the patient'ssymptoms I suggest no driving, tub bathing alone swimming alone until 3-6 months episode free and cleared byNeurology and Cardiology I suggest the patient follow up with [facility] in [place] As I am not convinced this was definitively an epileptic event and seems more like a syncopal episode of vasovagal event, I do not necessarily believe the patient has a candidate for antiepileptic treatment at this moment. We will continue to evaluate further at follow-up EEG as above. I did offer an antiepileptic to the patient given the fact that the episode has happened more than 1 time. The patient has declined this for now understanding that a recurrence of the episode could be life-threatening. It does not wish any medication at this time. We will evaluate further as above. PFO Patient does have a known history of PFO. Patient has seen [facility] in [place] for this. Patient is on aspirin. Plan: As the episode has recurred, I suggest the patient follow up again with cardiology with whom he hasalready established with [place] to further discuss this. Pt has been fully educated on their diagnosis, treatment options, follow up plan, and return instructions documented in this encounterColumbia Regional [id number] Hospital course Narrative * Cathryn Meraz, - 12/13/2023 3:01 PM EST Discharge Diagnosis Syncope and collapse Seizure like activity Dehydration Issues Requiring Follow-Up Obtain MRI Brain wo outpatient for further evaluation for potential seizure activity Establish care with a primary care provider. Obtain referrals for Electrophysiology and Neurology outpatient Encourage hydration, nutrition and rest Discharge Meds Medication List CONTINUE taking these medications aspirin 81 mg EC tablet omeprazole [address] capsule; Commonly known as: PriLOSEC Test Results Pending At Discharge Pending Labs Order Current Status Extra Urine [place] Tube In process Urinalysis with Reflex Culture and Microscopic In process Hospital Course Cathryn Brandon is a 37 y.o. male with medical history significant for PFO and prior [facility] ED with complaint of syncope. He just moved to [facility] and is visiting current area to go hunting with friend. Did not eat at all this morning and did not drink much of anything before going hunting. [place] the [place], he says he started feeling sick to stomach, felt hungry, nauseous without vomiting, weird feeling in tongue and then next thing he knows he woke up and while unconscious urinated himself. His friend whom he called to update him during the hunting says 7 minutes lapsed from when he last saw patient and spoke to him and when he awoke from event. Tells me he had a similar episode over a year ago evaluated days from the event. Worked up, Found PFO and though related to vasovagal and caffeine use. Did not use caffeine today but does drink Mountain dew and coffee other days. He says when asked about seizure activity that he was in a conversation/maybe argument with someone in past and had seizure activity during the episode. No other issues reported including chest pain, palpitations, dyspnea, abdominal pain, diarrhea, constipation, urinary symptoms. 12 point Review of Systems negative unless stated above. ED Course: Vitals: T98.2 P79 R18 BP138/78 98%RA Labs: WBC: 12.4 Hb: 14.1 Platelets: 299 CMP: WN Troponin: 5 x 2 / BNP: 20 Lactate: 0.8 D-dimer: 280 VB.43/39/47 UA: Negative Imaging: CTPE: Unable to assess for PE CT A&P with IV: No evidence of bowel obstruction. Colonic diverticulosis without diverticulitis. Fatty infiltration of liver. Bilateral renal cysts ED Intervention: None Patient evaluated in the ED doing well currently no issues. Suspect either orthostatic syncope, hypoglycemia or potential seizure activity which could be aura with syncope then urinary incontinence. Obtained CT head wo and Vascular US Carotid to assess which returned negative. Unfortunately MRI requires prior authorization per MRI department upon calling so can get this outpatient for further assessment. Followup with PCP, EP and neurology outpatient. Encourage oral hydration, nutrition and rest. Patient discharged today. Time spent with same day admission-discharge planning approximately 80 minutes. Pertinent Physical Exam At Time of Discharge Physical Exam Constitutional: Pleasant, Awake/Alert/Oriented to person place and time. No distress Head: Atraumatic, Normocephalic Eyes: EOMI. JOSELITO Neck: No JVD Cardiovascular: Regular rate and rhythm, S1, S2. No extra heart sounds or murmurs Respiratory: Clear to auscultation bilaterally. No wheezing, rales or rhonchi. Good chest wall expansion Abdomen: Soft, Nontender, Obese. Bowel sounds appreciated Musculoskeletal: ROM intact. Muscle strength grossly intact upper and lower extremities 5/5. Neurological: CNII-XII intact. Sensation grossly intact. He has some slight tremulous fingers Extremities: Warm and dry. No acute rashes and lesions Psychiatric: Appropriate mood and affect Outpatient Follow-Up No future appointments. Cathryn Meraz DO documented in this [facility] Work Phone: 1(496) 508-596811-04-2024 History and physical note* Cathryn Meraz DO - 12/13/2023 2:39 PM EST History Of Present Illness Cathryn Brandon is a 37 y.o. male with medical history significant for PFO and prior syncope presentsto [facility] ED with complaint of syncope. He just moved to [facility] and is visiting current area to go hunting with friend. Did not eat at all this morning and did not drink much of anything before going hunting. While hunting in the tree, he says he started feeling sick to stomach, felt hungry, nauseous without vomiting, weird feeling in tongue and then next thing he knows he woke up and while unconscious urinated himself. His friend whom he called to update him during the hunting says 7 minutes lapsed from when he last saw patient and spoke to him and when he awoke from event. Tells me he had a similar episode over a year ago evaluated days from the event. Worked up, Found PFO and though related to vasovagal and caffeine use. Did not use caffeine today but does drink Mountain dew and coffee other days. He says when asked about seizure activity that he was in a conversation/maybe argument with someone in past and had seizure activity during the episode. No other issues reported including chest pain, palpitations, dyspnea, abdominal pain, diarrhea, constipation, urinary symptoms. 12 point Review of Systems negative unless stated above. ED Course: Vitals: T98.2 P79 R18 BP138/78 98%RA Labs: WBC: 12.4 Hb: 14.1 Platelets: 299 CMP: WN Troponin: 5 x 2 / BNP: 20 Lactate: 0.8 D-dimer: 280 VB.43/39/47 UA: Negative Imaging: CTPE: Unable to assess for PE CT A&P with IV: No evidence of bowel obstruction. Colonic diverticulosis without diverticulitis. Fatty infiltration of liver. Bilateral renal cysts ED Intervention: None Past Medical History PFO, Prior Syncope Surgical History Left shoulder surgery, Right knee and ankle surgery Social History Denies tobacco and alcohol use/ Occasional marijuana use Family History Positive for cardiac (CAD), HTN, DM, CVA, Allergies Patient has no known allergies. Review of Systems Constitutional: Positive for diaphoresis. Negative for chills and fatigue. Eyes: Negative for photophobia and visual disturbance. Respiratory: Negative for shortness of breath, wheezing and stridor. Cardiovascular: Negative for chest pain, palpitations and leg swelling. Gastrointestinal: Positive for nausea. Negative for abdominal distention, abdominal pain, constipation, diarrhea and vomiting. Genitourinary: Negative for dysuria. Musculoskeletal: Negative for back pain, gait problem and myalgias. Neurological: Positive for dizziness, tremors, syncope and light-headedness. Psychiatric/Behavioral: Negative for confusion. Physical Exam Constitutional: Pleasant, Awake/Alert/Oriented to person place and time. No distress Head: Atraumatic, Normocephalic Eyes: EOMI. JOSELITO Neck: No JVD Cardiovascular: Regular rate and rhythm, S1, S2. No extra heart sounds or murmurs Respiratory: Clear to auscultation bilaterally. No wheezing, rales or rhonchi. Good chest wall expansion Abdomen: Soft, Nontender, Obese. Bowel sounds appreciated Musculoskeletal: ROM intact. Muscle strength grossly intact upper and lower extremities 5/5. Neurological: CNII-XII intact. Sensation grossly intact. He has some slight tremulous fingers Extremities: Warm and dry. No acute rashes and lesions Psychiatric: Appropriate mood and affect Last Recorded Vitals Blood pressure 129/79, pulse 76, temperature 36.8 C (98.2 F), resp. rate 18, height 1.753 m (5' 9 ), weight 109 kg (240 lb), SpO2 96%. Relevant Results Scheduled medications sodium chloride, 500 mL, intravenous, Once Continuous medications PRN medications Results for orders placed or performed during the hospital encounter of 12/13/23 (from the past 24 hours) POCT GLUCOSE Result Value Ref Range POCT Glucose 102 (H) 74 - 99 mg/dL Urinalysis with Reflex Culture and Microscopic Result Value Ref Range Color, Urine Yellow Light-Yellow, Yellow, Dark-Yellow Appearance, Urine Clear Clear Specific Teaberry, Urine >1.050 (N) 1.005 - 1.035 pH, Urine 6.0 5.0, 5.5, 6.0, 6.5, 7.0, 7.5, 8.0 Protein, Urine 30 (1+) (A) NEGATIVE, 10 (TRACE), 20 (TRACE) mg/dL Glucose, Urine Normal Normal mg/dL Blood, Urine NEGATIVE NEGATIVE Ketones, Urine 150 (4+) (A) NEGATIVE mg/dL Bilirubin, Urine NEGATIVE NEGATIVE Urobilinogen, Urine Normal Normal mg/dL Nitrite, Urine NEGATIVE NEGATIVE Leukocyte Esterase, Urine NEGATIVE NEGATIVE Urinalysis Microscopic Result Value Ref Range WBC, Urine 6-10 (A) 1-5, NONE /HPF RBC, Urine 1-2 NONE, 1-2, 3-5 /HPF Mucus, Urine 2+ Reference range not established. /LPF Hyaline Casts, Urine 1+ (A) NONE /LPF Fine Granular Casts, Urine OCCASIONAL (A) NONE /LPF CBC and Auto Differential Result Value Ref Range WBC 12.4 (H) 4.4 - 11.3 x10*3/uL nRBC 0.0 0.0 - 0.0 /100 WBCs RBC 4.60 4.50 - 5.90 x10*6/uL Hemoglobin 14.1 13.5 - 17.5 g/dL Hematocrit 42.4 41.0 - 52.0 % MCV 92 80 - 100 fL MCH 30.7 26.0 - 34.0 pg MCHC 33.3 32.0 - 36.0 g/dL RDW 12.1 11.5 - 14.5 % Platelets 299 150 - 450 x10*3/uL Neutrophils % 79.6 40.0 - 80.0 % Immature Granulocytes %, Automated 0.3 0.0 - 0.9 % Lymphocytes % 14.1 13.0 - 44.0 % Monocytes % 5.1 2.0 - 10.0 % Eosinophils % 0.3 0.0 - 6.0 % Basophils % 0.6 0.0 - 2.0 % Neutrophils Absolute 9.90 (H) 1.20 - 7.70 x10*3/uL Immature Granulocytes Absolute, Automated 0.04 0.00 - 0.70 x10*3/uL Lymphocytes Absolute 1.75 1.20 - 4.80 x10*3/uL Monocytes Absolute 0.63 0.10 - 1.00 x10*3/uL Eosinophils Absolute 0.04 0.00 - 0.70 x10*3/uL Basophils Absolute 0.08 0.00 - 0.10 x10*3/uL Comprehensive metabolic panel Result Value Ref Range Glucose 96 74 - 99 mg/dL Sodium 139 136 - 145 mmol/L Potassium 4.0 3.5 - 5.3 mmol/L Chloride 102 98 - 107 mmol/L Bicarbonate 25 21 - 32 mmol/L Anion Gap 16 10 - 20 mmol/L Urea Nitrogen 12 6 - 23 mg/dL Creatinine 0.90 0.50 - 1.30 mg/dL eGFR >90 >60 mL/min/1.73m*2 Calcium 9.0 8.6 - 10.3 mg/dL Albumin 4.1 3.4 - 5.0 g/dL Alkaline Phosphatase 66 33 - 120 U/L Total Protein 6.6 6.4 - 8.2 g/dL AST 29 9 - 39 U/L Bilirubin, Total 0.8 0.0 - 1.2 mg/dL ALT 34 10 - 52 U/L B-Type Natriuretic Peptide Result Value Ref Range BNP 20 0 - 99 pg/mL D-Dimer, VTE Exclusion Result Value Ref Range D-Dimer, Quantitative VTE Exclusion 280 <=500 ng/mL FEU Troponin I, High Sensitivity, Initial Result Value Ref Range Troponin I, High Sensitivity 5 0 - 20 ng/L Magnesium Result Value Ref Range Magnesium 1.74 1.60 - 2.40 mg/dL Phosphorus Result Value Ref Range Phosphorus 2.0 (L) 2.5 - 4.9 mg/dL Lactate Result Value Ref Range Lactate 0.8 0.4 - 2.0 mmol/L Blood Gas Venous Full Panel Result Value Ref Range POCT pH, Venous 7.43 7.33 - 7.43 pH POCT pCO2, Venous 39 (L) 41 - 51 mm Hg POCT pO2, Venous 47 (H) 35 - 45 mm Hg POCT SO2, Venous 79 (H) 45 - 75 % POCT Oxy Hemoglobin, Venous 77.4 (H) 45.0 - 75.0 % POCT Hematocrit Calculated, Venous 64.0 (H) 41.0 - 52.0 % POCT Sodium, Venous 132 (L) 136 - 145 mmol/L POCT Potassium, Venous 3.7 3.5 - 5.3 mmol/L POCT Chloride, Venous 101 98 - 107 mmol/L POCT Ionized Calicum, Venous 1.19 1.10 - 1.33 mmol/L POCT Glucose, Venous 96 74 - 99 mg/dL POCT Lactate, Venous 1.4 0.4 - 2.0 mmol/L POCT Base Excess, Venous 1.6 -2.0 - 3.0 mmol/L POCT HCO3 Calculated, Venous 25.9 22.0 - 26.0 mmol/L POCT Hemoglobin, Venous 21.4 (H) 13.5 - 17.5 g/dL POCT Anion Gap, Venous 9.0 (L) 10.0 - 25.0 mmol/L Patient Temperature FiO2 23 % Troponin, High Sensitivity, 1 Hour Result Value Ref Range Troponin I, High Sensitivity 5 0 - 20 ng/L CT angio chest for pulmonary embolism Result Date: 12/13/2023 STUDY: CT Angiogram of the Chest, CT Abdomen and Pelvis with IV Contrast; 12/13/2023 12:23 PM INDICATION: Abdominal cramping and syncope. COMPARISON: XR chest 12/13/2023. ACCESSION NUMBER(S): [id number], [id number] ORDERING CLINICIAN: MEDINA MURO TECHNIQUE: CTA of the chest was performed f ollowing rapid injection of intravenous contrast. Images are reviewed and processed at a workstation according to the CT angiogram protocol with 3-D and/or MIP post processing imaging generated. CT of the abdomen and pelvis was performed with intravenous contrast. Omnipaque 350--75 mL was administered intravenously; positive oral contrast was given. Automated mA/kV exposure control was utilized and patient examination was performed in strict accordance with principles of ALARA. FINDINGS: Bolus technique for CTA of the chest is poor. Assessment for pulmonary embolus cannot be achieved. No acute opacities or effusions are visualized. There is no evidence of a pneumothorax. No filling defects are seen within the trachea or mainstem bronchi. No enlarged lymph nodes are seen within the mediastinal or hilar regions. Coronary artery calcifications are not visualized. There is no evidence of aneurysmal dilatation of the ascending aorta, aortic arch, or descending thoracic aorta. No compression deformities are visualized within the thoracic spine. There is fatty infiltration of the liver. The portal and hepatic veins are patent. There is no intrahepatic ductal dilatation. The gallbladder is mildly distended. No acute findings are seen within the spleen. No inflammatory changes are seen daley rrounding the pancreas. No adrenal nodule is noted. There are small bilateral renal cysts. There isno evidence of hydronephrosis. No dilated loops of small bowel or colon are visualized. There are diverticula seen throughout the colon. There is no evidence of diverticulitis. The appendix is normalin appearance. No enlarged lymph nodes are seen within the pelvic sidewalls, iliac chains, or retroperitoneum. There is no evidence of aneurysmal dilatation of the abdominal aorta. No prominent edemais seen within the psoas musculature. No compression deformities are visualized within the lumbar spine. CHEST: 1. Unable to assess for a pulmonary embolus due to poor bolus technique. ABDOMEN/PELVIS: 1. No evidence for a bowel obstruction. 2. Colonic diverticulosis, with no evidence of diverticulitis. 3. Fatty infiltration of the liver. 4. Bilateral renal cysts. Signed by Jay Del Rosario MD CT abdomen pelvis w IV contrast Result Date: 12/13/2023 STUDY: CT Angiogram of the Chest, CT Abdomen and Pelvis with IV Contrast; 12/13/2023 12:23 PM INDICATION: Abdominal cramping and syncope. COMPARISON: XR chest 12/13/2023. ACCESSION NUMBER(S): [id number], [id number] ORDERING CLINICIAN: MEDINA MURO TECHNIQUE: CTA of the chest was performed f ollowing rapid injection of intravenous contrast. Images are reviewed and processed at a workstation according to the CT angiogram protocol with 3-D and/or MIP post processing imaging generated. CT of the abdomen and pelvis was performed with intravenous contrast. Omnipaque 350--75 mL was administered intravenously; positive oral contrast was given. Automated mA/kV exposure control was utilized and patient examination was performed in strict accordance with principles of ALARA. FINDINGS: Bolus technique for CTA of the chest is poor. Assessment for pulmonary embolus cannot be achieved. No acute opacities or effusions are visualized. There is no evidence of a pneumothorax. No filling defects are seen within the trachea or mainstem bronchi. No enlarged lymph nodes are seen within the mediastinal or hilar regions. Coronary artery calcifications are not visualized. There is no evidence of aneurysmal dilatation of the ascending aorta, aortic arch, or descending thoracic aorta. No compression deformities are visualized within the thoracic spine. There is fatty infiltration of the liver. The portal and hepatic veins are patent. There is no intrahepatic ductal dilatation. The gallbladder is mildly distended. No acute findings are seen within the spleen. No inflammatory changes are seen daley rrounding the pancreas. No adrenal nodule is noted. There are small bilateral renal cysts. There isno evidence of hydronephrosis. No dilated loops of small bowel or colon are visualized. There are diverticula seen throughout the colon. There is no evidence of diverticulitis. The appendix is normalin appearance. No enlarged lymph nodes are seen within the pelvic sidewalls, iliac chains, or retroperitoneum. There is no evidence of aneurysmal dilatation of the abdominal aorta. No prominent edemais seen within the psoas musculature. No compression deformities are visualized within the lumbar spine. CHEST: 1. Unable to assess for a pulmonary embolus due to poor bolus technique. ABDOMEN/PELVIS: 1. No evidence for a bowel obstruction. 2. Colonic diverticulosis, with no evidence of diverticulitis. 3. Fatty infiltration of the liver. 4. Bilateral renal cysts. Signed by Jay Del Rosario MD XR chest 2 views Result Date: 12/13/2023 STUDY: Chest Radiographs; 12/13/2023, 1122 INDICATION: Syncope. COMPARISON: None Available ACCESSIONNUMBER(S): [id number] ORDERING CLINICIAN: MEDINA MURO TECHNIQUE: Frontal and lateral chest.FINDINGS: CARDIOMEDIASTINAL SILHOUETTE: Cardiomediastinal silhouette is normal in size and configuration. LUNGS: Lungs are clear. ABDOMEN: No remarkable upper abdominal findings. BONES: No acute osseous changes. No acute process. Signed by Cathryn Chao MD Assessment/Plan # Syncope # Seizure like activity - Most likely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 unspecified type Syncope, unspecified syncope type Procedures Cardiac event monitor Ambrose Del Rosario MD [address] [place] [address] Referral IDStatusHayleyStrehoboth DateExpiration DateVisits RequestedVisits [id number] / Procedures Referred By ContactReferred To ContactRadiology Diagnoses Family history of premature CAD Procedures CT CALCIUM SCORE SCREENING Ambrose Del Rosario MD [address] [place] [address] Ref[facility] DateExpiration DateVisits RequestedVisits [id number] Request/[id number] / Procedures Referred By ContactReferred To ContactCardiology Diagnoses Syncope, unspecified syncope type Procedures Echocardiogram complete Ambrose Del Rosario MD [address] [place] [address] Ref[facility] IDStatus[facility] DateExpiration DateVisits RequestedVisits [id number] Request/ Summary Purpose Family History Relationship Condition Age at Onset Recorded Date/T oliver mother Heart disease Unknown Myocardial infarctionUnknownfatherHeart diseaseUnknownpaternal grandfather Myocardial infarctionUnknownmaternal grandfatherMalignant neoplasmUnknown Relationship Condition Age at Onset Recorded Date/T oliver mother Heart disease Unknown Myocardial infarctionUnknownfatherHeart diseaseUnknownHistory of percutaneous transluminal coronary angioplastyUnknownpaternal grandfatherMyocardial infarctionUnknownmaternal grandfatherMalignant neoplasmUnknown Advance Directives Advance Directive Response Recorded Date/ Time Advance Directives No February 25, 2024 11:06am Advance Directive Response Recorded Date/ Time Advance Directives No February 25, 2024 12:06pm Chief Complaint and Reason for Visit Chief Complaint Admit Date joe hines March 01, 2024 9 :53am Reason for Visit Admit Date Erectile dysfunction March 01, 2024 9:53am Patent foramen ovale March 01, 2024 9:53am Syncope March 01, 2024 9 :53am Chief Complaint Admit Date Syncope and collapse, Patent foramen ova le June 06, 2024 10:00am Reason for Visit Admit Date Patent foramen ovale June 06, 2024 10 :00am Syncope June 06, 2024 10: 00am Vasovagal syncope June 06, 2024 10: 00am Chief Complaint Admit Date Syncope and collapse, Patent foramen ova le June 06, 2024 10:00am R5July 04, 2024 8:30a m R5July 04, 2024 3:25p m Chief Complaint Admit Date 8 week f/u July 31, 2024 10:5 3am 3 month f/u October 12, 2024 8:31am Reason for Visit Admit Date Patent foramen ovale July 31, 2024 10: 53am Syncope July 31, 2024 10:5 3am Vasovagal syncope July 31, 2024 10:5 3am Patent foramen ovale October 12, 2024 8:31am Syncope October 12, 2024 8:31am Vasovagal syncope October 12, 2024 8:31am Chief Complaint Admit Date 3 month f/u [...] 7:54am Wellness examination November 28, 2024 7:54am Additional Source Comments Reason for Visit (unrecogniz ed section and content) ReasonCommentsEstablish CareNew Patient - passed out while driving, 05/03/2022- concerned why that had happenedLast physical was1 year ago and was okayReason CommentsInitial Visit (Intake)Had episode of chest pain, palpitations, nausea, and passed out while driving.Irregular Heart BeatPalpitationsChest PainSpecialty Diagnoses / ProceduresReferred By ContactReferred To ContactCardiology Diagnoses Chest pain, unspecified type Eleazar Burton CNP [address] [place] [address] [facility] Linda Yepez [address] [facility] [place] [address] Referral IDStatusReasonStart DateExpiration DateVisits RequestedVisits [id number] mo/review echo, CT calcium, and CEMReasonCommentsSyncopeReasonCommentsLoss of Consciousness Care Teams (unrecognized sec tion and content) Team MemberRelationshipSpecialtyStart DateEnd Date Eleazar Burton CNP [address], [facility]33 (Fax) PCP - GeneralNurse Practitioner05/14/22Team MemberRelationshipSpecialtyStart Date End Date Eleazar Burton CNP [address], [facility]33 (Fax) PCP - GeneralNurse Practitioner05/14/22am MemberRelationshipSpecialtyStart Date End Date Eleazar Burton CNP [address], [facility]33 (Fax) PCP - GeneralNurse Practitioner05/14/22Team MemberRelationshipSpecialtyStart Date End Date Generic Provider, [place] [address] PCP - GeneralGeneral Cqmyihqs80/4/24Team MemberRelationshipSpecialtyStart Date End Date Babita Capone DO [address] [place] [phone] Referring PhysicianNeurolog02/15/24 Chetna Adamson, DANA [address] [place] [phone] Nurse PractitionerNeurolog02/15/24Team MemberRelationshipSpecialtyStart DateEnd Date Eleazar Burton Ann, PRECINCT CAPTAIN [address] [place] [address] PCP - GeneralNurse Practitioner05/14/22 Team Status: Active Member Role Status Dates Medina Correia APRN RESPIRATORY THERAPIST-C Primary Care Provider Active Team Status: Inactive Member Role Status Dates Medina Correia APRN RESPIRATORY THERAPIST-C Primary Care Provider, Attending Provider Active Start: March 01, 2024 End: March 01, 2024Team MemberRelationshipSpecialtyStart DateEnd Date Babita Capone DO [address] [place] [phone] Referring PhysicianNeurolog02/15/24 Chetna Adamson NP [address] [place] [phone] Nurse PractitionerNeurolog02/15/24Team MemberRelationshipSpecialtyStart DateEnd Date Babita Capone DO [address] [place] [phone] Referring PhysicianNeurolog02/15/24 Chetna Adamson, DANA [address] [place] [phone] Nurse PractitionerNeurolog02/15/24 Team Status: Inactive Member Role Status Dates Medina Correia APRN RESPIRATORY THERAPIST-C Primary Care Provider, Referring Provider Active Start: June 06, 2024 End: June 06, 2024Linda Tarah , MDAttending ProviderActiveStart: June 06, 2024 End: June 06, 2024 Team Status: Inactive Member Role Status Dates Medina Correia APRN RESPIRATORY THERAPIST-C Primary Care Provider Active Start: July 04, 2024 End: July 04, 2024Ashley Rascon MDAttending ProviderActiveStart: July 04, 2024 End: July 04, 2024 Team Status: Active Member Role Status Dates Medina Correia APRN RESPIRATORY THERAPIST-C Primary Care Provider Active Start: July 04, 2024 Alejo Dorsey ProviderActiveStart: July 04, 2024 Abdirahman Wilhelm , MDAttending ProviderActiveStart: July 04, 2024 Team Status: Inactive Member Role Status Dates Medina Correia APRN RESPIRATORY THERAPIST-C Primary Care Provider Active Start: July 31, 2024 End: July 31, 2024Linjefferson Rascon MDAttending ProviderActiveStart: July 31, 2024 End: July 31, 2024 Team Status: Inactive Member Role Status Dates Medina Correia APRN RESPIRATORY THERAPIST-C Primary Care Provider Active Start: October 122024 End: October 12, 2024Linjefferson Rascon MDAttending ProviderActiveStart: October 12, 2024 End: October 12, 2024 Team Status: Active Member Role/Relationship Status Dates Medina Correia APRN RESPIRATORY THERAPIST-C Primary Care Provider Active Team Status: Inactive Member Role/Relationship Status Dates Medina Correia APRN RESPIRATORY THERAPIST-C Primary Care Provider Active Start: October 122024 End: October 12, 2024Linjefferson Rascon MDAttending ProviderActiveStart: October 12, 2024 End: October 12, 2024 Team Status: Inactive Member Role/Relationship Status Dates Medina Correia APRN RESPIRATORY THERAPIST-C Primary Care Provider Active Start: November End: November 28, 2024Medina Correia APRN RESPIRATORY THERAPIST-CAttending ProviderActive Start: November 28, 2024 End: November 28, 2024 (unrecognized sect ion and content) No Status Records FoundNo Status Records FoundNo Status Records FoundNo Status Records FoundNo Status Records FoundNo Status Records Found INFORMATION SOURCE (unrecogn ized section and content) DATE CREATED AUTHOR 10/10/2022 [facility] DATE CREATED AUTHOR AUTHOR'S ORGANIZ ATION 03/29/2023 [facility] DATE CREATED AUTHOR AUTHOR'S ORGANIZ ATION 12/24/2023 [facility] DATE CREATED AUTHOR AUTHOR'S ORGANIZ ATION 01/21/2024 [facility] DATE CREATED AUTHOR AUTHOR'S ORGANIZ ATION 03/17/2024 [facility] DATE CREATED AUTHOR AUTHOR'S ORGANIZ ATION 08/01/2024 [facility] Scheduled Active and Recently Administ ered Medications (unrecognized section and content) Medication Order iohexol (OMNIPaque) 350 mg iodine/mL solution 75 mL (COMPLETED) 75 mL, intravenous, Once in imaging, Starting on Wed12/13/23 at 1212, For 1 dose * 1214 (Given - Provider: Caryn Handley) sodium chloride 0.9 % bolus 500 mL (COMPLETED) 500 mL, intravenous, at 500 mL/hr, Administer over 1 Hours, Once, On Wed12/13/23 at 1430, For 1 dose * 1531 (New Bag - Provider: Jayro Conley, RN) * 1540 (Stopped - Provider: Jayro Conley, [place]) Goals (unrecognized section and content) Goals may be documented in a n alternate sectionGoals may be documented in an alternate sectionGoals may be documented in an alternate sectionGoals may be documented in an alternate sectionGoals may be documented in an alternate sectionGoals may be documented in an alternate section FOR RECORDS PERTAINING TO PATIENTS WHO ARE OR HAVE BEEN ENROLLED IN A CHEMICAL DEPENDENCY/SUBSTANCEABUSE PROGRAM, SOME INFORMATION MAY BE OMITTED. This clinical summary was aggregated from multiple sources. Caution should be exercised in using it in the provision of clinical care. This summary normalizes information from multiple sources, and as a consequence, information in this document may materially change the coding, format and clinical context of patient data. In addition, data may be omitted in some cases. CLINICAL DECISIONS SHOULD BE BASED ON THE PRIMARY CLINICAL RECORDS. [employer]. provides no warranty or guarantee of the accuracy or completeness of information in this document.
[2024-11-28 09:14] LABS: Hematocrit 44.5 % (42.0-54.0); Hemoglobin 14.8 g/dL (14.0-18.0); Immature Granulocytes Abs Auto 0.02 10^3/uL (0.00-0.03); Immature Granulocytes Pct Auto 0.2 % (0.0-0.5); Lymphocytes Absolute Auto 2.0 10^3/uL (1.2-3.8); Mean Corpuscular HGB Conc 33.3 g/dL (29.9-35.2); Mean Corpuscular Hemoglobin 31.5 pg (25.9-34.0); Mean Corpuscular Volume 94.7 fL (80.0-94.0); Platelet Count 279 10^3/uL (150-450); Red Blood Count 4.70 10^6/uL (4.70-6.10); White Blood Count 8.2 10^3/uL (4.0-11.0)
[2024-11-28 10:11] LABS: Alanine Aminotransferase 38 U/L (16-63); Albumin Globulin Ratio 1.1; Albumin Level 3.8 g/dL (3.4-5.0); Alkaline Phosphatase 77 U/L (46-116); Anion Gap 11.6; Aspartate Amino Transferase 16 U/L (15-37); Blood Urea Nitrogen 9.0 mg/dL (7.0-18.0); Calcium 8.8 mg/dL (8.5-10.1); Carbon Dioxide 28.9 mmol/L (21.0-32.0); Chloride 103 mmol/L (98-107); Cholesterol 208 mg/dL (<=200); Estimated GFR (African America >60 (>=60 mL/min/1.73m^2); Estimated GFR (Non-African Ame >60 (>=60 mL/min/1.73m^2); Globulin 3.5 g/dL; Glucose 105 mg/dL (74-106); HDL Cholesterol 37 mg/dL (40-60); Potassium 4.5 mmol/L (3.5-5.1); Sodium 139 mmol/L (136-145); Total Protein 7.3 g/dL (6.4-8.2); Triglycerides 95 mg/dL (<=150); VLDL CHOLESTEROL 19.0 mg/dL
== END 2024-11-28 08:33 | disposition home or self-care (01) ==
PROVIDERS: PCP Nurse Practitioner Family; Visit Provider Nurse Practitioner Family
DX: Z00.00 Encounter for general adult medical examination without abnormal findings (principal); Z13.228 Encounter for screening for other metabolic disorders; Z12.5 Encounter for screening for malignant neoplasm of prostate; Z13.0 Encounter for screening for diseases of the blood and blood-forming organs and certain disorders involving the immune mechanism
CPT/HCPCS: 36415; 80053; 80061; 85025; G0103